=== PATIENT | male | born 1950 | race Caucasian/White ===

== ENCOUNTER 2020-07-13 20:57 | Inpatient (IN) ==
--- NOTE | 2020-07-13 21:44 | Emergency Department Note ---
History of Present Illness General Chief complaint: Leg Injury/Pain Stated complaint: RIGHT LEG IS PURPLE - HAD HEART CATH THE OTHER DAY Time Seen by Provider: 07/13/20 21:27 Source: patient History of Present Illness Provider complaint: Right thigh pain Onset (ago): day(s) Location: lower extremity and right Radiation: non-radiation Severity: moderate Pain Consistency: + constant Maximum Pain Intensity: 6 Relieved By: + none Associated symptoms: no chest pain, no cough, no fever/chills, no headaches, no nausea/vomiting, no shortness of breath and no syncope This is a 70-year-old male who had a cardiac catheterization in the right groin on July 09 presenting with right thigh pain since yesterday. The patient states that there was some bruising in the area and now it has expanded down his thigh. He does not have pain to the groin but states the pain is mostly in his mid inner thigh. He does state he bruises easily. He has bruises to his right toes but states that that was because he caught it in a towel. He chronically has lower extremity edema which is unchanged. Today he tripped on something and fell onto his right side hitting his leg shoulder and forehead. He did not black out. He has known neck injury. He denies any other injury from his fall. His shoulder is not bothering him. He has had no fever, cough or cold sym ptoms, chest discomfort or pain, shortness of breath, abdominal pain, vomiting or diarrhea or hematuria. He is on aspirin and no other blood thinners. He denies any right shoulder pain. Home Medications Home Medications Medication Instructions Recorded Confirmed Type metoprolol succinate 12.5 mg PO DAILY 07/13/20 07/14/20 History aspirin 81 mg PO DAILY 07/14/20 07/14/20 History omega-3 fatty acids [Fish Oil] 1,000 mg PO DAILY 07/14/20 07/14/20 History Allergies Allergy/AdvReac Type Severity Reaction Status Date / Time Sulfa (Sulfonamide Allergy Swelling Verified 07/14/20 00:10 Antibiotics) of Lip/Tongue/Throat Past Med/Surg History Medical History Coronary artery disease Social History Smoking Status: Never smoker Second Hand Exposure: Yes; Hx Alcohol Use: Yes Alcohol type: wine Hx Substance Use: No Preferred Language: French Communication Ability: Effective Beliefs That Will Affect Care: None Current Living Situation: Significant Other Feels Safe at Home: Yes Assistive Devices: Denture - Upper, Denture - Lower and Glasses Review of Systems See HPI for pertinent positives & negatives. and A total of 10 systems reviewed and were otherwise negative Physical Exam Vital Signs Vital Signs - 24 hr 07/13/20 21:02 07/13/20 22:38 07/14/20 00:13 Temperature 36.8 C Temperature Source Oral Pulse Rate 84 Pulse Rate [Finger] 67 64 Respiratory Rate 20 18 18 Respiratory Depth Normal Blood Pressure 175/93 H Blood Pressure [Right Arm] 164/82 H 160/89 H Blood Pressure Mean 120 Blood Pressure Mean [Right Arm] 109 112 Pulse Oximetry 95 99 98 Oxygen Delivery Method Room Air Room Air Room Air Sepsis Recent Fever Within 48 Hours No Sepsis New/Unexplained Change in Mental Status N/A Sepsis Action Taken by Nursing No Action Required Constitutional: Vital signs reviewed. Eyes: Pupils are equal round reactive to light. Conjunctiva are noninjected. ENT: Pharynx is clear without erythema or exudate. Mucous membranes are moist. Neck supple without meningeal signs. Respiratory: Clear to auscultation bilaterally. Breath sounds are equal bilaterally. Cardiovascular: Regular rate and rhythm. No rubs or gallops. GI: Soft, nondistended and nontender. Bowel sounds are present. Musculoskeletal: Bilateral pedal edema. DP and PT pulses are 2+ bilaterally. Both feet are warm. There is ecchymosis to the base of the 2nd-4th toes on the right foot without significant tenderness. He does have a palpable right femoral pulse without thrill. There is ecchymosis to the right inner thigh with tenderness at the mid medial thigh. No palpable cords. No tenderness to the right shoulder or arm. No tenderness to the right hip or femur. No shortening. Integumentary: No cyanosis. or jaundice. Abrasion to the right forehead. Neurological: The patient is awake and alert. No focal deficits. Psychiatric: Normal affect. Not anxious appearing. Medical Decision Making Differential Diagnosis DVT, superficial thrombophlebitis, hematoma, pseudoaneurysm, ICH, concussion Medical Records Attestation: I reviewed the patient's medical records. The patient had a cardiac catheterization on July 09 which showed CAD inv olving the Home Medications Current Medication List: was personally reviewed by me Laboratory Data Attestation: I reviewed the patient's lab results. Result diagrams: 07/13/20 22:00 07/13/20 22:00 Lab Results 07/13/20 07/13/20 07/13/20 Range/Units 22:00 22:00 22:00 WBC 7.70 (4.8-10.8) K/uL RBC 4.76 (4.7-6.1) M/uL Hgb 14.2 (14.0-18.0) g/dL Hct 43.1 (42-52) % MCV 90.5 (80-100) fL MCH 29.8 (25-34) pg MCHC 32.9 (32-36) g/dL RDW Std Deviation 43.6 (36.4-46.3) fL RDW Coeff of Bahman 13.2 (11.5-14.5) % Plt Count 239 (130-400) K/uL MPV 10.9 H (7.4-10.4) fL Immature Gran % (Auto) 0.3 % Neut % (Auto) 55.7 % Lymph % (Auto) 27.0 % [place] % (Auto) 14.9 % Eos % (Auto) 1.7 % Baso % (Auto) 0.4 % Neut # (Auto) 4.29 (1.4-6.5) K/uL Lymph # (Auto) 2.08 (1.2-3.4) K/uL [place] # (Auto) 1.15 H (0.11-0.59) K/uL Eos # (Auto) 0.13 (0-0.5) K/uL Baso # (Auto) 0.03 (0-0.2) K/uL Immature Gran # (Auto) 0.02 (0.00-0.02) K/uL PT 10.9 (9.0-12.0) Seconds INR 1.0 (0.9-1.1) APTT 29.0 (21.0-31.0) Seconds PTT Ratio 1.0 Sodium 139 (136-145) mmol/L Potassium 3.8 (3.5-5.1) mmol/L Chloride 108 H (98-107) mmol/L Carbon Dioxide 25 (21-32) mmol/L Anion Gap 6.0 (3-11) BUN 22 H (7-18) mg/dl Creatinine 0.93 (0.6-1.4) mg/dl Est Cr Clr Drug Dosing 100.8 ml/min Est GFR ( Amer) 97.4 Est GFR (Non-Af Amer) 84.1 BUN/Creatinine Ratio 23.8 H (10-20) Glucose 111 H (70-99) mg/dl Calcium 8.9 (8.5-10.1) mg/dl Total Bilirubin 0.6 (0.2-1) mg/dl AST 19 (15-37) U/L ALT 24 (12-78) U/L Alkaline Phosphatase 74 (45-117) U/L Total Protein 7.5 (6.4-8.2) gm/dl Albumin 3.4 (3.4-5.0) gm/dl Globulin 4.1 H (2.5-4.0) gm/dl Albumin/Globulin Ratio 0.8 L (0.9-2) Imaging Data Radiologist's Impression: CT HEAD: Impression: No intracranial hemorrhage or other acute intracranial abnormality. No skull base or calvarium fracture. Postsurgical change of the right orbit. Complete opacification of the right until and ethmoid sinuses with air-fluid level in the right maxillary sinus, incompletely visualized. Recommend correl ation for symptoms. Global parenchymal volume loss with chronic microvascular ischemic changes. Radiologist: Roosevelt Peralta MD Study ready at 22:28 and initial results transmitted at 23:44 US ARTERIAL RIGHT LOWER EXTREMITY: There is a 1.8 cm pseudoaneurysm arising from the right RESOLUTE PROFESSIONAL. Right RESOLUTE PROFESSIONAL remains patent with triphasic waveform. Radiologist: Volodymyr Alvarado M.D. Study ready at 23:19 and initial results transmitted at 23:48 Head Trauma GCS Score: 15 MDM Narrative I did evaluate the patient as noted above. The patient is presenting with pain to the right leg as well as a head injury. IV access was established. I did order and review the patient's blood work as noted in the electronic medical record. His white count is not elevated. He is not anemic. He does not have thrombocytopenia. Electrolytes are unremarkable. I did order a CT of the head. I did review the images as well as the radiology report. He has no acute intracranial abnormality. I did order a venous and arterial Doppler of the right leg. I did review the images myself as well as the radiology report as described above. There is no DVT. He does have a 1.8 cm pseudoaneurysm off of the RESOLUTE PROFESSIONAL. I did discuss the test results with the patient. I did speak to Dr. Mejias who performed his cardiac catheterization. He recommended hospitalization for bed rest and further evaluation. I did discuss the case with the hospitalist and housing case manager. Impression & Plan Pseudoaneurysm of right femoral artery, Acute head injury, Fall Discharge Plan Visit Data Chief Complaint: Leg Injury/Pain Stated Complaint: RIGHT LEG IS PURPLE - HAD HEART CATH THE OTHER DAY ED Provider: Carlos Cee Discharge Problem: Pseudoaneurysm of right femoral artery, Acute head injury, Fall Patient Disposition: Being Evaluated by Hospitalist Forms Stand Alone Forms: My [facility] QRGL Prescriptions Prescriptions: No Action metoprolol succinate 25 mg tablet extended release 24 hr 12.5 mg PO DAILY RF: 0 aspirin 81 mg Tablet 81 mg PO DAILY RF: 0 Fish Oil Capsule 1,000 mg PO DAILY RF: 0 Referrals Referrals: Latonya Young, [Primary Care Provider] - Discharge Problem: Acute head injury Qualifiers: Encounter type: initial encounter Qualified Code(s): S09.90XA - Unspecified injury of head, initial encounter Fall Qualifiers: Encounter type: initial encounter Qualified Code(s): W19.XXXA - Unspecified fall, initial encounter
[2020-07-13 22:12] LABS: Basophils # (auto) 0.03 K/uL (0-0.2); Basophils % (auto) 0.4 %; Eosinophils # (auto) 0.13 K/uL (0-0.5); Eosinophils % (auto) 1.7 %; Hematocrit (blood only) 43.1 % (42-52); Hemoglobin 14.2 g/dL (14.0-18.0); Immature Granulocytes # (auto) 0.02 K/uL (0.00-0.02); Immature Granulocytes % (auto) 0.3 %; Lymphocytes # (auto) 2.08 K/uL (1.2-3.4); Mean Corpuscular Hemoglobin 29.8 pg (25-34); Mean Corpuscular Hgb Conc 32.9 g/dL (32-36); Mean Corpuscular Volume 90.5 fL (80-100); Mean Platelet Volume 10.9 fL (7.4-10.4); Monocytes # (auto) 1.15 K/uL (0.11-0.59); Monocytes % (auto) 14.9 %; Neutrophils # (auto) 4.29 K/uL (1.4-6.5); Neutrophils % (auto) 55.7 %; Platelet Count 239 K/uL (130-400); RDW Coefficient of Variation 13.2 % (11.5-14.5); RDW Standard Deviation 43.6 fL (36.4-46.3); Red Blood Count 4.76 M/uL (4.7-6.1)
[2020-07-13 22:21] LABS: Prothrombin Time 10.9 Seconds (9.0-12.0)
[2020-07-13 22:27] LABS: Albumin Level 3.4 gm/dl (3.4-5.0); BUN Creatinine Ratio 23.8 (10-20); Calcium 8.9 mg/dl (8.5-10.1); Creatinine Clr Calc Pharmacy 100.8 ml/min; Est GFR (African American) 97.4; Est GFR (Non-African American) 84.1; Potassium 3.8 mmol/L (3.5-5.1)
[2020-07-13 22:30] LABS: Albumin Globulin Ratio 0.8 (0.9-2); Bilirubin,Total 0.6 mg/dl (0.2-1); Globulin 4.1 gm/dl (2.5-4.0); Total Protein 7.5 gm/dl (6.4-8.2)
[2020-07-14] MEDS ORDERED: ACETAMINOPHEN 325 MG TAB PO PRN (02:50)
[2020-07-14] MEDS ORDERED: POLYETHYLENE (MIRALAX) 17 GM PACK PO PRN (02:50)
[2020-07-14] MEDS ORDERED: ONDANSETRON INJ 2 MG/ML 2 ML VIAL IV PRN (02:50)
[2020-07-14] MEDS ORDERED: NITROGLYCERIN SL 0.4 MG/TAB TAB SL PRN (02:50)
[2020-07-14] MEDS ORDERED: GLUCAGON FOR INJ 1 MG VIAL SQ PRN (03:00)
[2020-07-14] MEDS ORDERED: GLUCOSE 10 TABS/TUBE PO PRN (03:00)
[2020-07-14] MEDS ORDERED: DEXTROSE 50% 50 ML SYRINGE IV PRN (03:00)
[2020-07-14] MEDS ORDERED: GLUCOSE 40% GEL 15 GM TUBE PO PRN (03:00)
[2020-07-14] MEDS ORDERED: CARBOHYDRATES FOR HYPOGLYCEMIA PO PRN (03:00)
--- NOTE | 2020-07-14 03:10 | History and Physical Report ---
DATE OF ADMISSION: 07/14/2020 CHIEF COMPLAINT: Right groin purplish discoloration, found to have pseudoaneurysm. HISTORY OF PRESENT ILLNESS: This is a 70-year-old male with past medical history significant for type 2 diabetes, not on any medication, history of COPD, history of SVT, obesity, osteoarthritis, family history of ischemic heart disease, unspecified open-angle glaucoma, who presents with right groin pain. The patient had cardiac catheterization done on 07/09/2020, found to have nonobstructive disease. The patient states since cardiac catheterization he has some mild purple discoloration in his right groin.. It is growing in size and today he was walking outside his house when he tripped on the pipe and fell down. He hit his head but did not lose consciousness, but after that he noticed his purplish discoloration of right groin got worse. Has mild pain in the groin region. Duplex was done in the ER which is showing 1.8 cm pseudoaneurysm. ER physician discussed with cardiology and advised bed rest and observe in the hospital. Currently, the patient denies any other complaints. Resting comfortably and hemodynamically stable. Denies any headache, no blurred vision, no earache, no runny nose, no sore throat, no cough, no dysphagia, no nausea, no chest pain, no shortness of breath, no abdominal pain. Normal bowel and bladder movements. The patient otherwise ambulates okay. ALLERGIES: LASIX, SULFA ANTIBIOTICS, NAPROSYN. PAST MEDICAL HISTORY: As mentioned above. PAST SURGICAL HISTORY: Colonoscopy; left corneal allograft; keratoplasty, endothelial left side; removal of cataract on right side; intracapsular lens extraction on left side. MEDICATIONS: The patient is on aspirin 81 mg p.o. daily, metoprolol succinate 12.5 mg p.o. daily, omega fatty acid 2 tablets daily. FAMILY HISTORY: Significant for father has heart disease. SOCIAL HISTORY: No smoking, no alcohol, no drug use. REVIEW OF SYSTEMS: As per HPI. Rest of the review of systems negative. PHYSICAL EXAMINATION: GENERAL: The patient is obese, not in acute distress. VITAL SIGNS: Temperature 36.8, pulse 67, respiratory rate 18, blood pressure 158/86, oxygen 97% on room air. HEENT: Pupils equal, round, and reactive to light. NECK: Supple, no neck masses seen. CARDIOVASCULAR: S1, S2 heard, regular rate and rhythm, no murmur, no gallop. RESPIRATORY SYSTEM: Normal AP diameter. No accessory muscle use. No wheezing, no crackles. ABDOMEN: Soft, bowel sounds present, nontender. No distention. CENTRAL NERVOUS SYSTEM: Cranial nerves II-XII grossly intact, nonfocal. EXTREMITIES: Right groin purplish discoloration seen extending into the medial aspect of the mid thigh. LABORATORY DATA: WBC 7.7, hemoglobin 14.2, hematocrit 43.1, platelets 239. PT 10.9, INR 1, APTT 29. Sodium 139, potassium 3.8, chloride 108, bicarbonate 25, BUN 22, creatinine 0.9, serum glucose 111, calcium 8.9, total bilirubin 0.6, AST 19, ALT 24, alkaline phosphatase 74. IMAGING DATA: Venous Doppler study, preliminary report, no evidence of acute DVT. CT of the head, preliminary report, no acute intracranial hemorrhage or acute intracranial abnormality. Nuclear scan of lower extremity artery, preliminary report, there is a 1.8 cm pseudoaneurysm arising from the right ABRASIVE WORKER. Right ABRASIVE WORKER remains patent with triphasic waveform. ASSESSMENT AND PLAN: This is a 70-year-old male who recently had a heart catheterization, who comes with right groin pain and found to have pseudoaneurysm. 1. Pseudoaneurysm: Plan to give him bed rest and observe in the hospital. Cardiology consult in a.m. for any further recommendation. 2. History of nonobstructive coronary artery disease. Continue his Toprol-XL and aspirin. 3. History of supraventricular tachycardias. Continue his metoprolol succinate. 4. Diabetes, not on any medication. Will follow the hemoglobin A1c level. Place him on insulin sliding scale. Monitor the blood sugar in the hospital. 5. Deep venous thrombosis prophylaxis, sequential compression devices for now. 6. Disposition: Observe in med dMetrics. Expect to discharge home and follow with his family doctor. Level 1 full code. MTDD
[2020-07-14 07:29] LABS: Basophils # (auto) 0.02 K/uL (0-0.2); Basophils % (auto) 0.3 %; Eosinophils # (auto) 0.17 K/uL (0-0.5); Eosinophils % (auto) 2.8 %; Hematocrit (blood only) 39.4 % (42-52); Hemoglobin 13.3 g/dL (14.0-18.0); Immature Granulocytes # (auto) 0.02 K/uL (0.00-0.02); Immature Granulocytes % (auto) 0.3 %; Lymphocytes % (auto) 27.7 %; Mean Corpuscular Hemoglobin 30.4 pg (25-34); Mean Corpuscular Hgb Conc 33.8 g/dL (32-36); Mean Platelet Volume 10.6 fL (7.4-10.4); Monocytes # (auto) 0.84 K/uL (0.11-0.59); Monocytes % (auto) 13.7 %; Neutrophils # (auto) 3.39 K/uL (1.4-6.5); Neutrophils % (auto) 55.2 %; Platelet Count 209 K/uL (130-400); RDW Coefficient of Variation 13.1 % (11.5-14.5); Red Blood Count 4.38 M/uL (4.7-6.1); White Blood Count 6.14 K/uL (4.8-10.8)
--- NOTE | 2020-07-14 07:49 | CT Scan Report ---
HEAD CT NONCONTRAST CT DOSE: 537.48 mGy.cm HISTORY: fall eval for bleed TECHNIQUE: Multiaxial CT images of the head were performed without the use of intravenous contrast. A utomated exposure control was utilized for this study. A dose lowering technique was utilized adheri ng to the principles of ALARA. Comparison: None. Findings: Fluid levels within the right maxillary sinus with opacification of the right frontal sinus and right anterior ethmoid air cells. Small focal bony defect within the left frontal sinus is likel y due to old trauma. Postoperative changes within the right orbit are noted. The mastoid air cells ar e clear. The calvarium and skull base are intact. The ventricles and sulci are within normal limits. There is no mass, hematoma, midline shift, or acute infarct. Impression: No acute intracranial abnormality. Sinus disease as described above. ACT 112: Negative or not required by law. Electronically signed by: Anderw Madrid M.D. 07/14/2020 7:47 AM
[2020-07-14] MEDS: ASPIRIN 81 MG ECTAB PO SCH (07:51)
[2020-07-14] MEDS: METOPROLOL SUCC 25MG EXT REL TAB PO SCH (07:51)
[2020-07-14 08:06] LABS: BUN Creatinine Ratio 21.6 (10-20); Calcium 9.1 mg/dl (8.5-10.1); Creatinine Clr Calc Pharmacy 109.3 ml/min; Est GFR (African American) 103.8; Est GFR (Non-African American) 89.5; Magnesium 2.3 mg/dl (1.8-2.4); Potassium 3.7 mmol/L (3.5-5.1)
[2020-07-14] MEDS: INSULIN ASPART 100 UNITS/ML 3 ML PEN SC SCH ×4 (08:43→20:46)
--- NOTE | 2020-07-14 08:47 | Ultrasound Report ---
US venous doppler LE RT CLINICAL HISTORY: Right thigh pain COMPARISON STUDY: No previous studies for comparison. FINDINGS: Real-time and color flow Doppler imaging were performed. Flow was seen within the femoral, popliteal and calf veins with no intraluminal thrombus demonstrated. The saphenous vein is patent. IMPRESSION: No evidence of right lower extremity DVT. ACT 112: Negative or not required by law. Electronically signed by: Linus Yang M.D. 07/14/2020 8:46 AM
--- NOTE | 2020-07-14 08:59 | Ultrasound Report ---
US arterial duplex LE RT CLINICAL HISTORY: Right groin pain status post catheterization. COMPARISON STUDY: No previous studies for comparison. FINDINGS: A targeted ultrasound of the right groin region was performed. There is an 18 mm pseudoaneu rysm arising from the right common femoral artery. This demonstrated 2 and fro flow on color Doppler evaluation. The right common femoral artery was patent demonstrating triphasic flow. IMPRESSION: 18 mm pseudoaneurysm arising from the right common femoral artery. ACT 112: Negative or not required by law. Electronically signed by: Linus Yang M.D. 07/14/2020 8:58 AM
--- NOTE | 2020-07-14 09:09 | Cardiology Consultation ---
Date of Consultation July 14, 2020 Assessment & Plan (1) Pseudoaneurysm of right femoral artery: (2) Acute head injury: (3) Fall: (4) Coronary artery disease: This is a small pseudoaneurysm which is most likely to close on its own. I placed the pressure wrap on it. The patient has minimal discomfort and there is no bruit or pulsatile mass. Good distal pulses in the right lower extremity. We will place him at bedrest. Leave the pressure dressing on and repeat the ultrasound tomorrow. I did discuss the case with Dr. Paez and he will be seeing the patient as well. History of Present Illness Attending Physician: Nicholas Perales MD History of Present Illness This is a 70-year-old male patient who underwent a cardiac catheterization 6 days ago. He was doing well and had a little ecchymosis on the medial portion of his right thigh from the heart catheterization. Yesterday he was working around his yard and tripped over a piece of pipe and fell. He struck his head. He also thought there may be some expansion of the ecchymosis on his leg. He became concerned and was brought to the emergency department. In evaluation and CT of the brain was unremarkable for acute trauma. An ultrasound of the groin indicates a small 1.75 cm in diameter pseudoaneurysm. The patient was admitted and placed at bedrest. He has no other complaints today. He denies groin pain. No pain into the right thigh. He has been taken off of the aspirin and fish oil. He remains on metoprolol. Allergies Allergy/AdvReac Type Severity Reaction Status Date / Time Sulfa (Sulfonamide Allergy Swelling Verified 07/14/20 00:10 Antibiotics) of Lip/Tongue/Throat Home Medications Home Medications Medication Instructions Recorded Confirmed Type metoprolol succinate 12.5 mg PO DAILY 07/13/20 07/14/20 History aspirin 81 mg PO DAILY 07/14/20 07/14/20 History omega-3 fatty acids [Fish Oil] 1,000 mg PO DAILY 07/14/20 07/14/20 History Patient History Medical History Coronary artery disease Social History Smoking Status: Never smoker Second Hand Exposure: Yes; Hx Alcohol Use: Yes Alcohol type: wine Hx Substance Use: No Preferred Language: Romansh Communication Ability: Effective Permastone Mechanic Required: No Beliefs That Will Affect Care: None marital status: Life Partner Current Living Situation: Significant Other Feels Safe at Home: Yes Safety Concerns: Feels Safe At This Time Assistive Devices: None Review of Systems Review of Systems: All systems reviewed & are unremarkable except as noted in HPI & below Nothing additional to add. Physical Exam Physical Exam: General: no acute distress and stated age Head: normocephalic, no masses, lesions, tenderness or abnormalities Eyes: conjunctiva are pink and non-injected, sclera clear Neck: supple, no adenopathy, no bruits, normal jugular venous pulse, no hepatojugular reflux Chest: normal shape and normal respiratory effort Lungs: clear to auscultation and percussion Cardiac Exam: - regular rate & rhythm, no murmurs gallops or rubs - normal S1, normal S2 Pulses: 2(+) throughout Abdomen: abdomen soft, non-tender, no abnormal masses and no hepatosplenomegaly Musculoskeletal: no gait disturbance, no joint inflammation, no deforming arthritis Extremities: Ecchymosis along the medial portion of the right thigh. There is no mass or hematoma at the cath site. No bruits or pulsatile mass. The right lower extremity is warm to palpation with good distal pulses. Neuro: grossly normal exam Results & Data ([facility]) Vital Signs (Past 12 Hours) Vital Signs Temp Pulse Pulse Resp BP BP BP 07/14/20 07:21 36.8 C 66 16 135/75 07/14/20 07:12 66 07/14/20 03:14 63 07/14/20 02:50 07/14/20 02:25 36.5 C 67 16 176/86 H 07/14/20 02:09 69 18 156/87 H 07/14/20 01:28 67 18 158/86 H 07/14/20 00:13 64 18 160/89 H 07/13/20 22:38 67 18 164/82 H 07/13/20 21:02 36.8 C 84 20 175/93 H Pulse Ox Pulse Ox 07/14/20 07:21 94 07/14/20 07:12 07/14/20 03:14 07/14/20 02:50 96 07/14/20 02:25 96 07/14/20 02:09 96 07/14/20 01:28 97 07/14/20 00:13 98 07/13/20 22:38 99 07/13/20 21:02 95 Laboratory Results Laboratory Results - last 24 hr 07/13/20 07/13/20 07/13/20 22:00 22:00 22:00 WBC 7.70 RBC 4.76 Hgb 14.2 Hct 43.1 MCV 90.5 MCH 29.8 MCHC 32.9 RDW Std Deviation 43.6 RDW Coeff of Bahman 13.2 Plt Count 239 MPV 10.9 H Immature Gran % (Auto) 0.3 Neut % (Auto) 55.7 Lymph % (Auto) 27.0 [place] % (Auto) 14.9 Eos % (Auto) 1.7 Baso % (Auto) 0.4 Neut # (Auto) 4.29 Lymph # (Auto) 2.08 [place] # (Auto) 1.15 H Eos # (Auto) 0.13 Baso # (Auto) 0.03 Immature Gran # (Auto) 0.02 PT 10.9 INR 1.0 APTT 29.0 PTT Ratio 1.0 Sodium 139 Potassium 3.8 Chloride 108 H Carbon Dioxide 25 Anion Gap 6.0 BUN 22 H Creatinine 0.93 Est Cr Clr Drug Dosing 100.8 Est GFR ( Amer) 97.4 Est GFR (Non-Af Amer) 84.1 BUN/Creatinine Ratio 23.8 H Glucose 111 H POC Glucose Calcium 8.9 Magnesium Total Bilirubin 0.6 AST 19 ALT 24 Alkaline Phosphatase 74 Total Protein 7.5 Albumin 3.4 Globulin 4.1 H Albumin/Globulin Ratio 0.8 L 07/14/20 07/14/20 07/14/20 06:55 06:55 07:17 WBC 6.14 RBC 4.38 L Hgb 13.3 L Hct 39.4 L MCV 90.0 MCH 30.4 MCHC 33.8 RDW Std Deviation 43.0 RDW Coeff of Bahman 13.1 Plt Count 209 MPV 10.6 H Immature Gran % (Auto) 0.3 Neut % (Auto) 55.2 Lymph % (Auto) 27.7 [place] % (Auto) 13.7 Eos % (Auto) 2.8 Baso % (Auto) 0.3 Neut # (Auto) 3.39 Lymph # (Auto) 1.70 [place] # (Auto) 0.84 H Eos # (Auto) 0.17 Baso # (Auto) 0.02 Immature Gran # (Auto) 0.02 PT INR APTT PTT Ratio Sodium 140 Potassium 3.7 Chloride 108 H Carbon Dioxide 27 Anion Gap 5.0 BUN 18 Creatinine 0.85 Est Cr Clr Drug Dosing 109.3 Est GFR ( Amer) 103.8 Est GFR (Non-Af Amer) 89.5 BUN/Creatinine Ratio 21.6 H Glucose 108 H POC Glucose 112 H Calcium 9.1 Magnesium 2.3 Total Bilirubin AST ALT Alkaline Phosphatase Total Protein Albumin Globulin Albumin/Globulin Ratio Medications Administered Current Inpatient Medications Acetaminophen (Acetaminophen 325 Mg Tab) 650 mg PO Q4H PRN PRN Reason: Pain or Fever Stop: 08/13/20 02:49 Aspirin (Aspirin 81 Mg Ectab) 81 mg PO DAILY [facility] Stop: 08/13/20 08:59 Last Admin: 07/14/20 07:51 Dose: 81 mg Documented by: Dextrose (Dextrose 50% 50 Ml Syringe) 25 - 50 ml IV UD PRN; Protocol PRN Reason: Hypoglycemia Protocol Stop: 08/13/20 02:59 Glucagon (Glucagon For Inj 1 Mg Vial) 1 mg SQ UD PRN; Protocol PRN Reason: Hypoglycemia Protocol Stop: 08/13/20 02:59 Glucose (Glucose 40% Gel 15 Gm Tube) 15 - 30 gm PO UD PRN; Protocol PRN Reason: Hypoglycemia Protocol Stop: 08/13/20 02:59 Glucose (Glucose 10 Tabs/Tube) 4 - 8 tabs PO UD PRN; Protocol PRN Reason: Hypoglycemia Protocol Stop: 08/13/20 02:59 Insulin Aspart (Insulin Aspart 100 Units/Ml 3 Ml Pen) 0 units SC ACHS [place] Stop: 08/13/20 07:29 Last Admin: 07/14/20 08:43 Dose: Not Given Documented by: Metoprolol Succinate (Metoprolol Succ 25mg Ext Rel Tab) 12.5 mg PO DAILY [place] Stop: 08/13/20 08:59 Last Admin: 07/14/20 07:51 Dose: 12.5 mg Documented by: Miscellaneous (Carbohydrates For Hypoglycemia ) 15 - 30 gm PO UD PRN PRN Reason: Hypoglycemia Treatment Stop: 08/13/20 02:59 Nitroglycerin (Nitroglycerin Sl 0.4 Mg/Tab Tab) 0.4 mg SL UD PRN PRN Reason: Chest Pain Stop: 08/13/20 02:49 Ondansetron HCl (Ondansetron Inj 2 Mg/Ml 2 Ml Vial) 4 mg IV Q6H PRN PRN Reason: Nausea Stop: 08/13/20 02:49 Polyethylene Glycol (Polyethylene (Miralax) 17 Gm Pack) 17 gm PO DAILY PRN PRN Reason: Constipation Stop: 08/13/20 02:49 (1) Acute head injury Encounter type: initial encounter Qualified Code(s): S09.90XA - Unspecified injury of head, initial encounter (2) Fall Encounter type: initial encounter Qualified Code(s): W19.XXXA - Unspecified fall, initial encounter
--- NOTE | 2020-07-14 20:32 | Hospitalist Progress Note ---
Date of Service July 14, 2020 Assessment & Plan (1) Pseudoaneurysm of right femoral artery: Arterial duplex demonstrated 18 mm pseudoaneurysm arising from right common femoral artery. Vascular Surgery consulted. (2) Coronary artery disease: No anginal symptoms. (3) DVT prophylaxis: No anticoagulants due to RLE ecchymosis. SCD's. (4) Discharge planning issues: Anticipated discharge to home. Family Medicine follow-up with Dr. Young. Cardiology follow-up with Dr. Mejias. Admission and Anticipated Discharge Date Admission Date: July 14, 2020 Subjective Recheck for pseudoaneurysm right groin. Patient seen in their room around 1100. Admitted early this morning for monitoring of pseudoaneurysm right common femoral artery. S/P cardiac cath via right groin 07/10/20. Persistent ecchymosis right groin and thigh, but not too much pain. Physical Exam Constitutional: no acute distress Respiratory: no respiratory distress Auscultation: lungs clear to auscult ation bilaterally Cardiovascular: Rate/Rhythm: regular rate and regular rhythm Vessels: normal peripheral pulses (right DP 1/2, right PT 2/2); no JVD Extremities: no calf tenderness and no edema Gastrointestinal (Abdomen): normal bowel sounds, soft, nontender, no hepatosplenomegaly Musculoskeletal: Extremities: + extremities abnormal to inspection (pressure dressing right groin; ecchymoses right thigh) Skin: no rashes, warm and dry Psychiatric: Orientation: alert and oriented x 3 Results & Data Results & Data ([place]) Vital Signs (Past 12 Hours) Vital Signs Temp Pulse Pulse Resp BP Pulse Ox 07/14/20 19:14 36.9 C 70 16 155/75 H 98 07/14/20 16:28 66 07/14/20 15:38 36.8 C 65 16 134/55 L 92 07/14/20 11:22 36.5 C 54 L 16 161/93 H 96 07/14/20 11:18 36.9 C 94 H 16 99/69 L 94 Laboratory Results 07/14/20 06:55 07/14/20 06:55
[2020-07-14] MEDS: prednisoLONE acetate 1% OP SUSP 5 ML BTL OPB SCH (20:49)
[2020-07-14] MEDS: ARTIFICIAL TEARS OPB SCH (20:50)
[2020-07-15 07:35] LABS: Hematocrit (blood only) 41.5 % (42-52); Hemoglobin 13.9 g/dL (14.0-18.0)
[2020-07-15 07:59] LABS: BUN Creatinine Ratio 17.6 (10-20); Calcium 8.8 mg/dl (8.5-10.1); Creatinine Clr Calc Pharmacy 105.5 ml/min; Est GFR (African American) 102.3; Est GFR (Non-African American) 88.3
[2020-07-15] MEDS: METOPROLOL SUCC 25MG EXT REL TAB PO SCH (08:54)
[2020-07-15] MEDS: ASPIRIN 81 MG ECTAB PO SCH (08:56)
[2020-07-15] MEDS: INSULIN ASPART 100 UNITS/ML 3 ML PEN SC SCH ×4 (08:56→20:38)
--- NOTE | 2020-07-15 09:33 | Consultation ---
Date of Consultation July 15, 2020 Assessment & Plan (1) Pseudoaneurysm of right femoral artery: Pt's US was reviewed by Dr Paez. Pseudoaneurysm is relatively small and may resolve with pressure. If not, then surgical repair will likely be recommended. Will have pt undergo new US tomorrow morning and make further recommendations at that time. Discussed with pt, he is agreeable. Ok to ambulate to bathroom. History of Present Illness Reason for Consultation: R segundo pseudoaneurysm Attending Physician: Nicholas Perales MD History of Present Illness 70 yo m with hx of CAD, HTN, admitted with R groin pseudoaneurysm, seen in consultation today for same. Pt underwent cardiac catheterization last week and noted some mild bruising to R thigh area postop. States this increased in area over next few days, then became significantly worse after doing some work at home, so came to [facility]. pressure dressing was placed yesterday. Denies pain, edema, chest pain, SOB, abd pain, N/V, rest pain, claudication, other complaints. US demonstrated 1.7 cm pseudoaneruysm of R femoral art. Allergies Allergy/AdvReac Type Severity Reaction Status Date / Time Sulfa (Sulfonamide Allergy Swelling Verified 07/14/20 00:10 Antibiotics) of Lip/Tongue/Throat Home Medications Home Medications Medication Instructions Recorded Confirmed Type metoprolol succinate 12.5 mg PO DAILY 07/13/20 07/14/20 History aspirin 81 mg PO DAILY 07/14/20 07/14/20 History omega-3 fatty acids [Fish Oil] 1,000 mg PO DAILY 07/14/20 07/14/20 History Patient History Medical History Coronary artery disease Social History Smoking Status: Never smoker Second Hand Exposure: Yes; Hx Alcohol Use: Yes Alcohol type: wine Hx Substance Use: No Preferred Language: Slovak Communication Ability: Effective 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 Beliefs That Will Affect Care: None marital status: Life Partner Current Living Situation: Significant Other Feels Safe at Home: Yes Safety Concerns: Feels Safe At This Time Assistive Devices: None Review of Systems Review of Systems: All systems reviewed & are unremarkable except as noted in HPI & below Physical Exam Constitutional: WD/WN, vitals as above healthy appearing, cooperative, comfortable and + in distress (mild emotional) Eyes: PERRL, conjunctivae normal, anicteric sclerae ENMT: Ears: no hearing impairment Neck: normal visual inspection and trachea midline Respiratory: normal respiratory effort, lungs clear to auscultation Cardiovascular: RRR, no murmur, no edema Vessels: normal peripheral pulses, femoral pulses present (pressure dressing to R groin, pulse easily palpable), posterior tibial pulses present, dorsalis pedis pulses present, brachial pulses present and radial pulses present Extremities: normal capillary refill; no edema Gastrointestinal (Abdomen): normal bowel sounds, soft, nontender, no hepatosplenomegaly Musculoskeletal: no cyanosis or clubbing, extremities motor strength 5/5 Skin: no rashes, warm and dry + ecchymosis (soft R groin/thigh) Neurologic: moves all extremities; no focal motor deficits and not confused Psychiatric: A+Ox3, euthymic affect Affect: + anxious affect Results & Data ([facility]) Vital Signs (Past 12 Hours) Vital Signs Temp Pulse Pulse Resp BP Pulse Ox 07/15/20 07:15 36.8 C 72 18 147/77 H 96 07/15/20 07:00 68 07/15/20 03:24 36.9 C 76 18 137/76 94 07/14/20 22:20 67 07/14/20 22:05 36.8 C 74 18 130/72 98
--- NOTE | 2020-07-15 10:24 | Cardiology Progress Note ---
Date of Service July 15, 2020 Assessment & Plan (1) Pseudoaneurysm of right femoral artery: (2) Acute head injury: (3) Fall: (4) Coronary artery disease: Vascular surgery consult appreciated. It seems the plan will be to keep the patient at bedrest again today with a pressure wrap on and then complete a follow-up ultrasound tomorrow morning which if the pseudoaneurysm has closed and he can be discharged. Admission and Anticipated Discharge Date Admission Date: July 14, 2020 Subjective The patient has no new cardiac complaints. Unfortunately, his elderly mother has been diagnosed with COVID. He is trying to find out more information. Review of Systems Review of Systems: All systems reviewed & are unremarkable except as noted in Subjective Physical Exam Physical Exam: General: no acute distress and stated age Head: normocephalic, no masses, lesions, tenderness or abnormalities Eyes: conjunctiva are pink and non-injected, sclera clear Neck: supple, no adenopathy, no bruits, normal jugular venous pulse, no hepatojugular reflux Chest: normal shape and normal respiratory effort Lungs: clear to auscultation and percussion Cardiac Exam: - regular rate & rhythm, no murmurs gallops or rubs - normal S1, normal S2 Pulses: 2(+) throughout Abdomen: abdomen soft, non-tender, no abnormal masses and no hepatosplenomegaly Musculoskeletal: no gait disturbance, no joint inflammation, no deforming arthritis Extremities: no edema and no cyanosis Neuro: grossly normal exam Results & Data ([facility]) Vital Signs (Past 12 Hours) Vital Signs Temp Pulse Pulse Resp BP Pulse Ox 07/15/20 07:15 36.8 C 72 18 147/77 H 96 07/15/20 07:00 68 07/15/20 03:24 36.9 C 76 18 137/76 94 Laboratory Results Laboratory Results - last 24 hr 07/14/20 07/14/20 07/14/20 11:46 16:51 20:36 Hgb Hct Sodium Potassium Chloride Carbon Dioxide Anion Gap BUN Creatinine Est Cr Clr Drug Dosing Est GFR ( Amer) Est GFR (Non-Af Amer) BUN/Creatinine Ratio Glucose POC Glucose 101 H 99 138 H Calcium 07/15/20 07/15/20 07/15/20 07:17 07:17 07:26 Hgb 13.9 L Hct 41.5 L Sodium 137 Potassium 4.0 Chloride 106 Carbon Dioxide 27 Anion Gap 4.0 BUN 16 Creatinine 0.88 Est Cr Clr Drug Dosing 105.5 Est GFR ( Amer) 102.3 Est GFR (Non-Af Amer) 88.3 BUN/Creatinine Ratio 17.6 Glucose 117 H POC Glucose 140 H Calcium 8.8 Medications Administered Current Inpatient Medications Acetaminophen (Acetaminophen 325 Mg Tab) 650 mg PO Q4H PRN PRN Reason: Pain or Fever Stop: 08/13/20 02:49 Artificial Tears (Artificial Tears) 1 drops OPB DAILY@2100 [facility] Stop: 08/13/20 20:59 Last Admin: 07/14/20 20:50 Dose: 1 drops Documented by: Aspirin (Aspirin 81 Mg Ectab) 81 mg PO DAILY [facility] Stop: 08/13/20 08:59 Last Admin: 07/15/20 08:56 Dose: 81 mg Documented by: Dextrose (Dextrose 50% 50 Ml Syringe) 25 - 50 ml IV UD PRN; Protocol PRN Reason: Hypoglycemia Protocol Stop: 08/13/20 02:59 Glucagon (Glucagon For Inj 1 Mg Vial) 1 mg SQ UD PRN; Protocol PRN Reason: Hypoglycemia Protocol Stop: 08/13/20 02:59 Glucose (Glucose 40% Gel 15 Gm Tube) 15 - 30 gm PO UD PRN; Protocol PRN Reason: Hypoglycemia Protocol Stop: 08/13/20 02:59 Glucose (Glucose 10 Tabs/Tube) 4 - 8 tabs PO UD PRN; Protocol PRN Reason: Hypoglycemia Protocol Stop: 08/13/20 02:59 Insulin Aspart (Insulin Aspart 100 Units/Ml 3 Ml Pen) 0 units SC ACHS [facility] Stop: 08/13/20 07:29 Last Admin: 07/15/20 08:56 Dose: Not Given Documented by: Metoprolol Succinate (Metoprolol Succ 25mg Ext Rel Tab) 12.5 mg PO DAILY [facility] Stop: 08/13/20 08:59 Last Admin: 07/15/20 08:54 Dose: 12.5 mg Documented by: Miscellaneous (Carbohydrates For Hypoglycemia ) 15 - 30 gm PO UD PRN PRN Reason: Hypoglycemia Treatment Stop: 08/13/20 02:59 Nitroglycerin (Nitroglycerin Sl 0.4 Mg/Tab Tab) 0.4 mg SL UD PRN PRN Reason: Chest Pain Stop: 08/13/20 02:49 Ondansetron HCl (Ondansetron Inj 2 Mg/Ml 2 Ml Vial) 4 mg IV Q6H PRN PRN Reason: Nausea Stop: 08/13/20 02:49 Polyethylene Glycol (Polyethylene (Miralax) 17 Gm Pack) 17 gm PO DAILY PRN PRN Reason: Constipation Stop: 08/13/20 02:49 Prednisolone Acetate (Prednisolone Acetate 1% Op Susp 5 Ml Btl) 1 drops OPB DAILY@2100 [facility] Stop: 08/13/20 20:59 Last Admin: 07/14/20 20:49 Dose: 1 drops Documented by: (1) Acute head injury Encounter type: initial encounter Qualified Code(s): S09.90XA - Unspecified injury of head, initial encounter (2) Fall Encounter type: initial encounter Qualified Code(s): W19.XXXA - Unspecified fall, initial encounter
[2020-07-15] MEDS: prednisoLONE acetate 1% OP SUSP 5 ML BTL OPB SCH ×3 (20:27→20:30)
[2020-07-15] MEDS: ARTIFICIAL TEARS OPB SCH (20:42)
[2020-07-15] MEDS ORDERED: SYSTANE EYE DROPS OPB SCH (21:00)
--- NOTE | 2020-07-15 21:10 | Hospitalist Progress Note ---
Date of Service July 15, 2020 Assessment & Plan (1) Pseudoaneurysm of right femoral artery: Arterial duplex demonstrated 18 mm pseudoaneurysm arising from right common femoral artery. Vascular Surgery consulted. Follow-up US recommended for tomorrow. May need surgical repair- check preop COVID-19 screen. (2) Coronary artery disease: No anginal symptoms. (3) DVT prophylaxis: No anticoagulants due to RLE ecchymosis. SCD's. (4) Discharge planning issues: Anticipated discharge to home. Family Medicine follow-up with Dr. Young. Cardiology follow-up with Dr. Mejias. Admission and Anticipated Discharge Date Admission Date: July 15, 2020 Subjective Recheck for pseudoaneurysm right groin. Patient seen in their room around 1040. Persistent ecchymosis right thigh. Mild discomfort right groin. Patient shared that his mother is in a half-way and was diagnosed with COVID-19. He has not had direct contact with her for some time because of visitation restrictions. Review of Systems: Constitutional- no fever. Cardiac- no chest pain. Pulmonary- no cough or SOB. GI- no nausea, vomiting, diarrhea, melena, hematochezia. - no urinary symptoms. Otherwise, as noted above. Physical Exam Constitutional: no acute distress Respiratory: no respiratory distress Auscultation: lungs clear to auscultation bilaterally Cardiovascular: Rate/Rhythm: regular rate and regular rhythm Vessels: no JVD Extremities: no calf tenderness and no edema Gastrointestinal (Abdomen): normal bowel sounds, soft, nontender, no hepatosplenomegaly Musculoskeletal: Extremities: + extremities abnormal to inspection (pressure dressing right groin; ecchymoses right thigh) Skin: no rashes, warm and dry Psychiatric: Orientation: alert and oriented x 3 Results & Data Results & Data ([facility]) Vital Signs (Past 12 Hours) Vital Signs Temp Pulse Pulse Resp BP Pulse Ox 07/15/20 19:41 37.1 C 88 18 144/77 H 92 07/15/20 15:59 37.0 C 70 20 152/68 H 96 07/15/20 14:20 72 07/15/20 11:18 37.2 C 76 18 161/83 H 91 Laboratory Results 07/15/20 07:17 07/15/20 07:17
[2020-07-16] MEDS: METOPROLOL SUCC 25MG EXT REL TAB PO SCH (08:23)
[2020-07-16] MEDS: ASPIRIN 81 MG ECTAB PO SCH (08:23)
[2020-07-16] MEDS: INSULIN ASPART 100 UNITS/ML 3 ML PEN SC SCH ×2 (08:24→12:14)
--- NOTE | 2020-07-16 09:10 | Ultrasound Report ---
US arterial duplex LE RT HISTORY: 70 years-old Male R groin pseudo. 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 FINDINGS: Triphasic waveforms are noted within the common femoral, profunda femoris and superficial femoral art eries. The previously described small pseudoaneurysm arising from the common femoral artery is not id entified on today's study. On today's exam, there is a complex mixed echogenicity collection with ill -defined margins within the right inguinal tissues adjacent to the common femoral artery, 3.3 x 1.9 x 2.4 cm. Probable adjacent hematoma within the subcutaneous tissues measures up to 4.4 x 2.3 x 3.3 cm . IMPRESSION: 1. Previously described pseudoaneurysm arising from the common femoral artery is not identified on to day's study. 2. Probable hematoma adjacent to the right common femoral artery and adjacent subcutaneous tissues as above. ACT 112: Negative or not required by law. The above report was generated using voice recognition software. It may contain grammatical, syntax o r spelling errors. Electronically signed by: Cecil Ennis M.D. 07/16/2020 9:09 AM
--- NOTE | 2020-07-16 11:33 | Cardiology Progress Note ---
Date of Service July 16, 2020 Assessment & Plan (1) Pseudoaneurysm of right femoral artery: (2) Acute head injury: (3) Fall: (4) Coronary artery disease: The patient is ready for discharge with outpatient follow-up. His pseudoaneurysm as expected closed with conservative management. I instructed him to follow his previous instructions not to lift anything heavy, squat or climb stairs. He should limit his activities for the next week. I will arrange follow-up with our clinic. Admission and Anticipated Discharge Date Admission Date: July 15, 2020 Subjective The patient has no new cardiac complaints today. He states that his leg actually feels better. Review of Systems Review of Systems: All systems reviewed & are unremarkable except as noted in HPI & below Nothing additional to add. Physical Exam Physical Exam: General: no acute distress and stated age Head: normocephalic, no masses, lesions, tenderness or abnormalities Eyes: conjunctiva are pink and non-injected, sclera clear Neck: supple, no adenopathy, no bruits, normal jugular venous pulse, no hepatojugular reflux Chest: normal shape and normal respiratory effort Lungs: clear to auscultation and percussion Cardiac Exam: - regular rate & rhythm, no murmurs gallops or rubs - normal S1, normal S2 Pulses: 2(+) throughout Abdomen: abdomen soft, non-tender, no abnormal masses and no hepatosplenomegaly Musculoskeletal: no gait disturbance, no joint inflammation, no deforming arthritis Extremities: Ecchymosis of the right groin without hematoma or bruit. Neuro: grossly normal exam Results & Data ([facility]) Vital Signs (Past 12 Hours) Vital Signs Temp Pulse Pulse Resp BP BP Pulse Ox 07/16/20 07:26 36.6 C 77 18 141/82 H 94 07/16/20 07:00 55 L 07/16/20 04:00 36.5 C 65 18 144/78 H 95 Laboratory Results Laboratory Results - last 24 hr 07/15/20 07/15/20 07/15/20 13:30 13:30 16:48 POC Glucose 132 H COVID-19 Eval Order Covid19 [facility]Now [facility] SARS-CoV-2, RNA, NAAT NEGATIVE 07/15/20 07/16/20 20:23 07:47 POC Glucose 117 H 139 H COVID-19 Eval Order SARS-CoV-2, RNA, NAAT Diagnostic Findings Repeat ultrasound of the right reveals the pseudoaneurysm to have closed. There is now just a small hematoma in the area of the heart catheterization. Medications Administered Current Inpatient Medications Acetaminophen (Acetaminophen 325 Mg Tab) 650 mg PO Q4H PRN PRN Reason: Pain or Fever Stop: 08/13/20 02:49 Artificial Tears (Artificial Tears) 1 drops OPB DAILY@2100 [facility] Stop: 08/13/20 20:59 Last Admin: 07/15/20 20:42 Dose: 1 drops Documented by: Aspirin (Aspirin 81 Mg Ectab) 81 mg PO DAILY [facility] Stop: 08/13/20 08:59 Last Admin: 07/16/20 08:23 Dose: 81 mg Documented by: Dextrose (Dextrose 50% 50 Ml Syringe) 25 - 50 ml IV UD PRN; Protocol PRN Reason: Hypoglycemia Protocol Stop: 08/13/20 02:59 Glucagon (Glucagon For Inj 1 Mg Vial) 1 mg SQ UD PRN; Protocol PRN Reason: Hypoglycemia Protocol Stop: 08/13/20 02:59 Glucose (Glucose 40% Gel 15 Gm Tube) 15 - 30 gm PO UD PRN; Protocol PRN Reason: Hypoglycemia Protocol Stop: 08/13/20 02:59 Glucose (Glucose 10 Tabs/Tube) 4 - 8 tabs PO UD PRN; Protocol PRN Reason: Hypoglycemia Protocol Stop: 08/13/20 02:59 Insulin Aspart (Insulin Aspart 100 Units/Ml 3 Ml Pen) 0 units SC ACHS [facility] Stop: 08/13/20 07:29 Last Admin: 07/16/20 08:24 Dose: Not Given Documented by: Metoprolol Succinate (Metoprolol Succ 25mg Ext Rel Tab) 12.5 mg PO DAILY [facility] Stop: 08/13/20 08:59 Last Admin: 07/16/20 08:23 Dose: 12.5 mg Documented by: Miscellaneous (Carbohydrates For Hypoglycemia ) 15 - 30 gm PO UD PRN PRN Reason: Hypoglycemia Treatment Stop: 08/13/20 02:59 Nitroglycerin (Nitroglycerin Sl 0.4 Mg/Tab Tab) 0.4 mg SL UD PRN PRN Reason: Chest Pain Stop: 08/13/20 02:49 Ondansetron HCl (Ondansetron Inj 2 Mg/Ml 2 Ml Vial) 4 mg IV Q6H PRN PRN Reason: Nausea Stop: 08/13/20 02:49 Polyethylene Glycol (Polyethylene (Miralax) 17 Gm Pack) 17 gm PO DAILY PRN PRN Reason: Constipation Stop: 08/13/20 02:49 Prednisolone Acetate (Prednisolone Acetate 1% Op Susp 5 Ml Btl) 1 drops OPB DAILY@2100 [facility] Stop: 08/13/20 20:59 Last Admin: 07/15/20 20:30 Dose: 1 drops Documented by: (1) Acute head injury Encounter type: initial encounter Qualified Code(s): S09.90XA - Unspecified injury of head, initial encounter (2) Fall Encounter type: initial encounter Qualified Code(s): W19.XXXA - Unspecified fall, initial encounter
--- NOTE | 2020-07-16 13:16 | Communication Note ---
Date of Service: July 16, 2020 No pseudoaneurysm seen on today's study Can d/c. Will repeat scan in two weeks.
--- NOTE | 2020-07-16 14:56 | Hospitalist Progress Note ---
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 Repeat Doppler Study: Previously described pseudoaneurysm arising from the common femoral artery is not identified on today's study. Probable hematoma adjacent to the right common femoral artery and adjacent subcutaneous tissues as above. Appreciate Vascular Surgery Input Will need repeat Dopplers in 2 weeks Needs follow-up with vascular surgeon upon discharge (2) Coronary artery disease: No anginal symptoms. Appreciate cardiology input (3) DVT prophylaxis: No anticoagulants Re: RLE ecchymosis. SCD's. CODE STATUS full code Disposition Plan to discharge home today (4) Discharge planning issues: Anticipated discharge to home. Family Medicine follow-up with Dr. Young. Cardiology follow-up with Dr. Mejias. Admission and Anticipated Discharge Date Admission Date: July 15, 2020 Subjective Patient is seen and examined at bedside Offers no new complaints Denies chest pain, shortness of breath, dizziness, nausea, abdominal pain, groin pain Doppler study done today showed no pseudoaneurysm Discussed with vascular surgery, cardiology today Plan to be discharged home today Review of Systems Review of Systems: All systems reviewed & are unremarkable except as noted in HPI & below Physical Exam Physical Exam: Physical Exam: Vitals signs as noted above General Appearance:Moderately built and nourished, no apparent distress Head: normocephalic, Atraumatic Eyes: normal inspection, EOMI Neck: supple, Trachea midline Respiratory/Chest: Normal breath sounds, CTA Cardiovascular: S1, S2, No murmur Abdomen/GI:Soft, Non tender, Bowel sounds present : R groin ecchymoses Extremities/Musculoskeletal:normal inspection, no edema Neurologic/Psych:AAOX3, grossly no focal neurological deficits Skin: normal color, warm Results & Data Results & Data ([facility]) Vital Signs (Past 12 Hours) Vital Signs Temp Pulse Pulse Resp BP BP Pulse Ox 07/16/20 14:20 71 07/16/20 11:33 72 18 158/80 H 97 07/16/20 07:26 36.6 C 77 18 141/82 H 94 07/16/20 07:00 55 L 07/16/20 04:00 36.5 C 65 18 144/78 H 95
--- NOTE | 2020-07-16 15:09 | Discharge Summary ---
Date of Service July 16, 2020 Admission HPI Per Admitting Provider CHIEF COMPLAINT: Right groin purplish discoloration, found to have pseudoaneurysm. HISTORY OF PRESENT ILLNESS: This is a 70-year-old male with past medical history significant for type 2 diabetes, not on any medication, history of COPD, history of SVT, obesity, osteoarthritis, family history of ischemic heart disease, unspecified open-angle glaucoma, who presents with right groin pain. The patient had cardiac catheterization done on 07/09/2020, found to have nonobstructive disease. The patient states since cardiac catheterization he has some mild purple discoloration in his right groin.. It is growing in size and today he was walking outside his house when he tripped on the pipe and fell down. He hit his head but did not lose consciousness, but after that he noticed his purplish discoloration of right groin got worse. Has mild pain in the groin region. Duplex was done in the ER which is showing 1.8 cm pseudoaneurysm. ER physician discussed with cardiology and advised bed rest and observe in the hospital. Currently, the patient denies any other complaints. Resting comfortably and hemodynamically stable. Denies any headache, no blurred vision, no earache, no runny nose, no sore throat, no cough, no dysphagia, no nausea, no chest pain, no shortness of breath, no abdominal pain. Normal bowel and bladder movements. The patient otherwise ambulates okay. Admission Exam Per Admitting Provider PHYSICAL EXAMINATION: GENERAL: The patient is obese, not in acute distress. VITAL SIGNS: Temperature 36.8, pulse 67, respiratory rate 18, blood pressure 158/86, oxygen 97% on room air. HEENT: Pupils equal, round, and reactive to light. NECK: Supple, no neck masses seen. CARDIOVASCULAR: S1, S2 heard, regular rate and rhythm, no murmur, no gallop. RESPIRATORY SYSTEM: Normal AP diameter. No accessory muscle use. No wheezing, no crackles. ABDOMEN: Soft, bowel sounds present, nontender. No distention. CENTRAL NERVOUS SYSTEM: Cranial nerves II-XII grossly intact, nonfocal. EXTREMITIES: Right groin purplish discoloration seen extending into the medial aspect of the mid thigh. Principal Diagnosis Right common femoral artery pseudoaneurysm Discharge Data Allergies Allergy/AdvReac Type Severity Reaction Status Date / Time Sulfa (Sulfonamide Allergy Swelling Verified 07/14/20 00:10 Antibiotics) of Lip/Tongue/Throat Consultations 07/13/20 23:51 ED Decision to Admit Stat 07/14/20 02:50 Consult Case Management - Discharge Planning Routine 07/14/20 08:00 Consult Cardiology Routine 07/14/20 09:42 Consult Vascular Surgery Routine Procedures Performed RLE Doppler:18 mm pseudoaneurysm arising from the right common femoral artery. HEAD CT:No acute intracranial abnormality. Sinus disease as described above. Venous Doppler: No evidence of right lower extremity DVT. Repeat Arterial Right LE doppler: 1. Previously described pseudoaneurysm arising from the common femoral artery is not identified on today's study. 2. Probable hematoma adjacent to the right common femoral artery and adjacent subcutaneous tissues as above. 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 Repeat Doppler Study: Previously described pseudoaneurysm arising from the common femoral artery is not identified on today's study. Probable hematoma adjacent to the right common femoral artery and adjacent subcutaneous tissues as above. Appreciate Vascular Surgery Input Will need repeat Dopplers in 2 weeks Needs follow-up with vascular surgeon upon discharge (2) Coronary artery disease: No anginal symptoms. Appreciate cardiology input (3) DVT prophylaxis: No anticoagulants Re: RLE ecchymosis. SCD's. CODE STATUS full code Disposition Plan to discharge home today (4) Discharge planning issues: Anticipated discharge to home. Family Medicine follow-up with Dr. Young. Cardiology follow-up with Dr. Mejias. Total Time Total Time Spent Total Time Spent (In Minutes): 38 minutes Total Time Includes: Examination of the Patient, Discharge Planning, Medication Reconciliation, Communication With Other Providers and Other Discharge Plan Discharge Items Patient Disposition: Home - Self-Care Reason For Visit: RIGHT LEG IS PURPLE - HAD HEART CATH THE OTHER DAY Discharge Diagnosis: Right common femoral artery pseudoaneurysm Activity: Per Instructions section Exercise/Sports: Gradually increase as tolerated Non-emergency contact: Primary Care Provider, Surgeon and Clinical Assessment Manager Call non-emergency contact if: you have any medication questions, your symptoms worsen, your pain is not controlled, your pain is worsening, your pain is unusual for you, you have a fever, your wound has increased redness, your wound has increased drainage and your wound pain has increased Follow-up/Referrals: Jignesh Paez MD [Physician] - (Call office to schedule a two week follow up with groin ultrasound) Chrissy Keller PA-C [Physician Rn Care Manager] - (Date & Time 08/06/2020 12:00 PM Provider Chrissy Keller PA-C [facility] ) Latonya Young DO [Primary Care Provider] - (Date & Time 07/22/2020 10:40 AM Provider Latonya Young DO Department [facility] ) Diet: Heart Healthy Addtl Attending Provider Instructions: Follow-up with your primary care physician Dr.Allison Young on 07/22/2020 10:40 AM as scheduled Follow up with your vascular surgeon Dr. Jignesh Paez in 2 weeks with repeat Doppler study as advised Follow-up with your manager hydraulic Chrissy Keller PA-C on 08/06/2020 12:00 PM as scheduled Seek immediate medical attention if your symptoms reoccur or worsen Pending Studies at Discharge: No Stand-Alone Forms: My [facility] [employer], Smoking Cessation Medications and DC Order Prescriptions: Continued metoprolol succinate 25 mg tablet extended release 24 hr 12.5 mg PO DAILY RF: 0 aspirin 81 mg Tablet 81 mg PO DAILY RF: 0 Fish Oil Capsule 1,000 mg PO DAILY RF: 0 Discharge Orders: Discharge Order (Routine); Ordered 07/16/20 Ordered By: Javan Marina Admission Data Admit Date/Time: 07/15/20 11:52 Attending Provider: Javan Marina Admit Provider: Rodney Van Primary Care Provider: Latonya Young Other Providers: Rodney Van ; Kirill Mejias ; Jignesh Paez
== END 2020-07-16 15:30 | disposition home or self-care (01) | DRG 301 ==
LOC: ED 20:57 → 2N 20:57 → SUATTDRO 07-14 01:46 → 2N 07-14 02:14 → SUATTDRO 07-15 11:52

== ENCOUNTER 2020-09-14 00:24 | Inpatient (IN) ==
[2020-09-14] MEDS ORDERED: ASPIRIN CHEW 324 MG PO STA (00:38)
[2020-09-14] MEDS ORDERED: NITROGLYCERIN SL 0.4 MG/TAB TAB SL PRN ×2 (00:38→04:38)
[2020-09-14 00:48] LABS: Basophils # (auto) 0.03 K/uL (0-0.2); Basophils % (auto) 0.4 %; Eosinophils # (auto) 0.12 K/uL (0-0.5); Eosinophils % (auto) 1.7 %; Hematocrit (blood only) 43.8 % (42-52); Hemoglobin 14.9 g/dL (14.0-18.0); Immature Granulocytes # (auto) 0.01 K/uL (0.00-0.02); Immature Granulocytes % (auto) 0.1 %; Lymphocytes # (auto) 2.18 K/uL (1.2-3.4); Mean Corpuscular Hemoglobin 30.9 pg (25-34); Mean Corpuscular Volume 90.9 fL (80-100); Mean Platelet Volume 11.1 fL (7.4-10.4); Monocytes # (auto) 1.01 K/uL (0.11-0.59); Monocytes % (auto) 14.4 %; Neutrophils # (auto) 3.68 K/uL (1.4-6.5); Neutrophils % (auto) 52.4 %; Platelet Count 210 K/uL (130-400); RDW Coefficient of Variation 13.4 % (11.5-14.5); RDW Standard Deviation 44.2 fL (36.4-46.3); Red Blood Count 4.82 M/uL (4.7-6.1); White Blood Count 7.03 K/uL (4.8-10.8)
--- NOTE | 2020-09-14 00:49 | Emergency Department Note ---
Impression & Plan Unstable angina pectoris, Chest pain, Abnormal EKG, Elevated troponin I level ED Provider Note NAME: LUI GARCIA AGE: 70 SEX: M : 1950 ARRIVES VIA: Walk-In INFORMANT: Patient, ED PROVIDER(S): Hemant Bhandari DO CHIEF COMPLAINT: Chest pain HPI: The patient is a 70-year-old male who presented to the emergency department for an evaluation of chest pain. The patient started having chest discomfort over the last few weeks. He started noticing left-sided chest pressure. He was seen by his manager banking for this pain. He had a cardiac catheterization in the end of June. At that time he was found to have coronary artery disease however there was no culprit lesion. I did review the patient's previous cardiac catheterization which was done in our facility. The patient was placed on medication for blood pressure as well as high cholesterol. The patient started having more discomfort over the last few days. He has noticed pain over the left side of the chest. The pain is worsened with exertion. The pain is sometimes relieved with rest as well as aspirin. The patient started having pain again this evening at approximately 7-8 PM. He was doing light activity when he noticed the onset of the pain. He did sit down and rest. He also took aspirin. His pain is significantly improved at this time but he still has continued discomfort so he came to the emergency department for further evaluation. He denies having any shortness of breath. He has had no lower extremity swelling or pain. He states otherwise he has been compliant with his outpatient medication regimen. He denies having any fever or cough. ROS: See above HPI for pertinent positives & negatives. A total of 10 systems reviewed and were otherwise negative. PAST MEDICAL HISTORY: See Below PAST SURGICAL HISTORY: See Below FAMILY HISTORY: See Below SOCIAL HISTORY: See Below HOME MEDICATIONS: See Below ALLERGIES: See Below VITALS: See Below PHYSICAL EXAMINATION: GENERAL: The patient is awake and alert. He seems somewhat uncomfortable. EYES: The conjunctivae are clear. The pupils are round and reactive. EARS, NOSE, MOUTH AND THROAT: The nose is without any evidence of any deformity. NECK: The neck is nontender and supple. RESPIRATORY: Normal respiratory effort is noted there is no evidence of wheezing rhonchi or rales CARDIOVASCULAR: Regular rate and rhythm noted there no murmurs rubs or gallops normal S1 normal S2. GASTROINTESTINAL: The abdomen is soft. Abdomen is nontender. MUSCULOSKELETAL/EXTREMITIES: There is no evidence of gross deformity full range of motion is noted in the hips and shoulders. SKIN: There is no obvious evidence of any rash. There are no petechiae, pallor or cyanosis noted. Pulses are symmetric in both wrists. NEUROLOGIC: Patient is awake alert and oriented x3. MEDICAL DECISION MAKING: The patient is a 70-year-old male who presented to the emergency department for an evaluation of chest discomfort. The patient had a recent cardiac catheterization which did show diffuse coronary artery disease especially in the LAD but this was felt to be medical management and did not appear to be a culprit lesion at that time. The patient has been having exertional chest pain especially over the last few days. He presented to the emergency department this evening with chest pain and abnormal EKG which included biphasic T waves in the anterior leads and inferior ST depressions. I do feel this could be consistent with coronary artery syndrome. The patient had aspirin and nitroglycerin in the emergency department which significantly improved his pain level. A repeat EKG was obtained and it showed significant improvement of the previously noted ST and T wave abnormalities. I discussed the patient's laboratory and radiographic studies with him. I also discussed the limitations of the emergency department work-up for chest pain with him. At this time I feel the patient would benefit from inpatient management and possibly repeat troponins and then evaluation by cardiology to determine if invasive testing would be beneficial again for this patient. Of note the patient did develop a pseudoaneurysm after the previous cardiac catheterization. Triage Nursing notes reviewed. Prior medical records reviewed Vital Signs: reviewed and remarkable for no significant abnormalities Differential diagnosis: Cardiac ischemia, aortic dissection, pulmonary embolism, pneumothorax, pneumonia, pericarditis, myocarditis, esophageal rupture, GERD, cholecystitis, pancreatitis, musculoskeletal, as well as other pathologies. ER treatment provided: See below Diagnostics interpreted by me: ECG: EKG was obtained in the emergency department. My interpretation is normal sinus rhythm at 70 bpm. There is no ectopy. Biphasic T waves were noted in the anterior leads. There was ST segment depressions noted in both the high and low lateral leads. This was compared to a tracing from May 092019. The ST and T wave abnormalities are new compared to the earlier tracing. I feel this represents an ischemic tracing. Repeat tracing was obtained after the patient was treated with aspirin and ni troglycerin. His pain was significantly improved. The second tracing reveals normal sinus rhythm at 75 bpm. There is no ectopy. Significant improvement of the previously noted ST and T wave abnormalities was appreciated. Cardiac Monitoring: An order was placed for continuous cardiac monitoring. The monitor shows a rate of 85 bpm with sinus rhythm. Laboratory studies: As stated above and show below. Imaging studies: See below Consultation(s): 0135: I discussed this case with Dr. Merino. We discussed the addition of heparin but at this time I will defer the decision to the admitting team as the patient continues to be pain-free. ED COURSE: Procedures: none PDMP:reviewed and no issues The patient's cardiac catheterization was reviewed. Patient: LUI GARCIA Date: 07/09/20MR#: [id number] Phy: Kirill Mejias, DOAcct ID:[id number] Phy: Latonya Young, DOBirth Date: 1950Fam Phy:Age: 70Location: CCSex: M Room/Bed:Ref Phy: Roge Reddy, DOcc: ~ DICTATED BY: Kirill Mejias, Date of Service July 09, 2020 Cardiac Cath Report Cardiac Cath Report Procedure: 1. Left heart catheterization 2. Coronary angiography 3. Left ventriculography History: This is a 70-year-old male patient who presented with exertional shortness of breath and underwent an exercise stress test that was abnormal. Procedure summary: After informed consent was obtained the patient was taken to the cardiac catheterization lab where access was obtained using a retrograde Salinger technique from the right radial artery. After several attempts however, a wire could not be passed for sheath placement and therefore the radial site was abandoned. I therefore obtained access using a retrograde Salinger technique from the right femoral artery. Preformed 5 Slovenian diagnostic catheters were utilized for the coronary angiograms. A 5 Slovenian pigtail catheter was utilized for left heart pressures and for the left ventriculogram. Following the procedure the arterial site was closed with a minx device and the patient was sent to the holding area the Acid Adjuster in stable condition. ACC data: Start time 8:33 AM End time 9:08 AM Opening aortic pressure 164/86 Closing aortic pressure 178/88 Left ventricular pressure 182/2 Sedation 1 mg intravenous Versed IV fluids 70 cc of normal saline Contrast 145 cc Optiray Fluoroscopy time 3.5 minutes Radiation 1515 mGy DAP 148 cGy/m Right dominant system AUC score 7 Coronary angiography: Selective injections of the left coronary artery revealed the left main trunk to be widely patent there is diffuse disease of the left coronary artery. A 40 to 50% proximal LAD stenosis with the remainder of the LAD being diffusely nonobstructive disease until the very apex of the LAD which has a subtotal stenosis there is a large diagonal which is diffusely diseased. The left circumflex artery consist of mainly a single marginal branch. The left circumflex artery has diffuse minor disease. Injections to the right coronary artery revealed to be dominant. There is an eccentric 50% stenoses in the mid segment of the right coronary artery and on the AP view there is evidence of collaterals to the very distal portion of the LAD. Left ventriculogram: The left ventricle is of normal size with normal systolic function. The mitral valve is competent. The aortic root and ascending aorta have normal morphology and diameter. Summary: The patient has diffuse coronary artery disease especially of the LAD. There is a 40 to 50% proximal LAD stenoses and more distally at the very end of the LAD there is a subtotal stenosis. There is also a 50% eccentric stenosis in the mid right coronary artery. Left ventricular function is normal. Recommendations: The recommendations are for medical management of nonobstructive coronary artery disease. Signed By:<Electronically signed by Kirill Mejias DO>{f rep sign date/time1]Created/Dictated: 07/09/20940Transcribed: 07/09/20940Transcriptionist: DEBBIE Past Med/Surg History Medical History Coronary artery disease High cholesterol Hypertension Pseudoaneurysm of right femoral artery Surgical History History of cardiac catheterization Social History Smoking Status: Never smoker Second Hand Exposure: Yes; Hx Alcohol Use: Yes Alcohol type: wine Hx Substance Use: No Preferred Language: Occitan Communication Ability: Effective Stack Attendant Required: No Beliefs That Will Affect Care: None marital status: Life Partner Current Living Situation: Significant Other Feels Safe at Home: Yes Assistive Devices: None Allergies Allergies Allergy/AdvReac Type Severity Reaction Status Date / Time Sulfa (Sulfonamide Allergy Swelling Verified 09/14/20 00:55 Antibiotics) of Lip/Tongue/Throat naproxen [From Naprosyn] AdvReac Intermediate Gastrointestinal Verified 09/14/20 00:55 Upset Home Meds Home Medications Medication Instructions Recorded Confirmed metoprolol succinate 25 mg PO QAM 07/13/20 09/14/20 aspirin 81 mg PO QAM 09/14/20 09/14/20 coenzyme Q10 [CoQ-10] 100 mg PO QAM 09/14/20 09/14/20 omega-3 fatty acids-fish oil 1 cap PO QAM 09/14/20 09/14/20 rosuvastatin 20 mg PO QAM 09/14/20 09/14/20 Results & Data (ED) Vital Signs Vital Signs - 24 hr 09/14/20 00:28 09/14/20 00:40 09/14/20 00:50 Temperature 36.9 C Temperature Source Oral Pulse Rate 76 76 Respiratory Rate 22 24 Respiratory Effort / Characteristics Non-Labored Spontaneous Respiratory Depth Normal Blood Pressure 162/83 H 137/86 Blood Pressure Mean 109 115 Pulse Oximetry 96 Oxygen Delivery Method Room Air Room Air Sepsis New/Unexplained Change in Mental Status N/A Sepsis Action Taken by Nursing No Action Required 09/14/20 00:56 Temperature Temperature Source Pulse Rate 70 Respiratory Rate 14 Respiratory Effort / Characteristics Respiratory Depth Blood Pressure 127/81 Blood Pressure Mean 103 Pulse Oximetry Oxygen Delivery Method Sepsis New/Unexplained Change in Mental Status Sepsis Action Taken by [facility] Medications Current Medication List: was personally reviewed by me Laboratory Data Attestation: I reviewed the patient's lab results. Result diagrams: 09/14/20 00:36 09/14/20 00:36 Lab Results 09/14/20 09/14/20 09/14/20 Range/Units 00:36 00:36 00:36 WBC 7.03 (4.8-10.8) K/uL RBC 4.82 (4.7-6.1) M/uL Hgb 14.9 (14.0-18.0) g/dL Hct 43.8 (42-52) % MCV 90.9 (80-100) fL MCH 30.9 (25-34) pg MCHC 34.0 (32-36) g/dL RDW Std Deviation 44.2 (36.4-46.3) fL RDW Coeff of Bahman 13.4 (11.5-14.5) % Plt Count 210 (130-400) K/uL MPV 11.1 H (7.4-10.4) fL Immature Gran % (Auto) 0.1 % Neut % (Auto) 52.4 % Lymph % (Auto) 31.0 % [place] % (Auto) 14.4 % Eos % (Auto) 1.7 % Baso % (Auto) 0.4 % Neut # (Auto) 3.68 (1.4-6.5) K/uL Lymph # (Auto) 2.18 (1.2-3.4) K/uL [place] # (Auto) 1.01 H (0.11-0.59) K/uL Eos # (Auto) 0.12 (0-0.5) K/uL Baso # (Auto) 0.03 (0-0.2) K/uL Immature Gran # (Auto) 0.01 (0.00-0.02) K/uL PT 10.8 (9.0-12.0) Seconds INR 1.0 (0.9-1.1) APTT 29.0 (21.0-31.0) Seconds PTT Ratio 1.0 Sodium 141 (136-145) mmol/L Potassium 4.0 (3.5-5.1) mmol/L Chloride 108 H (98-107) mmol/L Carbon Dioxide 27 (21-32) mmol/L Anion Gap 6.0 (3-11) BUN 17 (7-18) mg/dl Creatinine 0.87 (0.6-1.4) mg/dl Est Cr Clr Drug Dosing 111.0 ml/min Est GFR ( Amer) 102.8 Est GFR (Non-Af Amer) 88.7 BUN/Creatinine Ratio 19.2 (10-20) Glucose 114 H (70-99) mg/dl Calcium 8.4 L (8.5-10.1) mg/dl Total Bilirubin 0.4 (0.2-1) mg/dl AST 22 (15-37) U/L ALT 27 (12-78) U/L Alkaline Phosphatase 68 (45-117) U/L Troponin I 0.844 H* (0-0.045) ng/ml Total Protein 7.5 (6.4-8.2) gm/dl Albumin 3.6 (3.4-5.0) gm/dl Globulin 3.9 (2.5-4.0) gm/dl Albumin/Globulin Ratio 0.9 (0.9-2) Lipase 101 (73-393) U/L Administered Medications Nitroglycerin (Nitroglycerin Sl 0.4 Mg/Tab Tab) 0.4 mg SL UD PRN PRN Reason: Chest Pain Stop: 10/14/20 00:37 Last Admin: 09/14/20 00:47 Dose: 0.4 mg Documented by: [id number] Discontinued Medications Aspirin (Aspirin Chew 324 Mg) 324 mg PO NOW STA Stop: 09/14/20 00:39 Last Admin: 09/14/20 00:46 Dose: 324 mg Documented by: [id number] Imaging Data Attestation: I personally reviewed and interpreted this imaging study as follows: My Impression: 1 view chest x-ray was obtained in the emergency department. My interpretation is small right pleural effusion. Poor inspiratory effort was noted. There is no definite infiltrate. Tortuous aorta was noted. No acute disease was noted. No free air was noted. Blood Pressure Blood Pressure Findings: Elevated blood pressure Blood Pressure Disposition: further management by hospitalist Discharge Plan Visit Data Chief Complaint: Chest Pain Stated Complaint: CHEST PAIN, DIZZY, SOB ED Provider: Hemant Bhandari Discharge Problem: Unstable angina pectoris, Chest pain, Abnormal EKG, Elevated troponin I level Patient Disposition: Being Evaluated by Hospitalist Condition: Good Forms Stand Alone Forms: My [facility] [employer] Prescriptions Prescriptions: No Action metoprolol succinate 25 mg tablet extended release 24 hr 25 mg PO QAM RF: 0 aspirin 81 mg Tablet,Delayed Release (Dr/Ec) 81 mg PO QAM RF: 0 coenzyme Q10 [CoQ-10] 100 mg Capsule 100 mg PO QAM RF: 0 rosuvastatin 20 mg Tablet 20 mg PO QAM RF: 0 omega-3 fatty acids-fish oil 300-1,000 mg Capsule 1 cap PO QAM RF: 0 Referrals Referrals: Latonya Young DO [Primary Care Provider] - Discharge Problem: Chest pain Qualifiers: Chest pain type: unspecified Qualified Code(s): R07.9 - Chest pain, unspecified
[2020-09-14 00:59] LABS: Prothrombin Time 10.8 Seconds (9.0-12.0)
[2020-09-14 01:05] LABS: Albumin Level 3.6 gm/dl (3.4-5.0); BUN Creatinine Ratio 19.2 (10-20); Calcium 8.4 mg/dl (8.5-10.1); Est GFR (African American) 102.8; Est GFR (Non-African American) 88.7
[2020-09-14 01:25] LABS: Albumin Globulin Ratio 0.9 (0.9-2); Bilirubin,Total 0.4 mg/dl (0.2-1); Globulin 3.9 gm/dl (2.5-4.0); Total Protein 7.5 gm/dl (6.4-8.2); Troponin I 0.844 ng/ml (0-0.045)
--- NOTE | 2020-09-14 02:53 | History & Physical Report ---
Date of Service September 14, 2020 Assessment & Plan (1) NSTEMI (non-ST elevated myocardial infarction): hx nonocclusive CAD hypertension, slight elevated hyperlipidemia, on statin Rx COPD as per records, lung status stable DM 2 diet-controlled, well-controlled as of recent outpatient hemoglobin A1c of 5.19 May 2020. PCU Aspirin, beta-eric, statin, IV Heparin; nitro as needed Follow troponin TTE, Cardiology consult RE NSTEMI N.p.o. until patient seen by cardiology. ISS BG goal [id number], update hemoglobin A1c DVT prophylaxis. IV Heparin Full code Text document was generated using [employer] voice recognition software. It may contain grammatical or spelling errors. Kindly contact undersigned for clarification of any documentation item in question. History of Present Illness Chief Complaint: Chest pain Primary Care Provider: Latonya Young, History obtained from patient, family, and records. Medical history significant for nonocclusive CAD, PSVT, hypertension, hyperlipidemia, COPD as per records, DM 2 diet-controlled. Patient underwent diagnostic cardiac catheterization last June 2020 after an abnormal outpatient stress test. Nonobstructive CAD noted. Last confinement July 2020 right common femoral artery pseudoaneurysm as a complication of diagnostic cardiac cath procedure. Pseudoaneurysm resolved without operative management. 4 days history of achy left-sided chest heaviness as if somebody was stepping on his chest, intermittent symptoms, worsened with exertion, relieved by rest. Usual activities at home. Patient compliant with home medications. Some stress with mother's illness. No unusual cough or shortness of breath symptoms. Discomfort relieved by nitroglycerin administration at the ER. 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 Allergies Allergy/AdvReac Type Severity Reaction Status Date / Time Sulfa (Sulfonamide Allergy Swelling Verified 09/14/20 00:55 Antibiotics) of Lip/Tongue/Throat naproxen [From Naprosyn] AdvReac Intermediate Gastrointestinal Verified 09/14/20 00:55 Upset Home Medications Medication Instructions Recorded Confirmed Type metoprolol succinate 25 mg PO QAM 07/13/20 09/14/20 History aspirin 81 mg PO QAM 09/14/20 09/14/20 History coenzyme Q10 [CoQ-10] 100 mg PO QAM 09/14/20 09/14/20 History omega-3 fatty acids-fish oil 1 cap PO QAM 09/14/20 09/14/20 History rosuvastatin 20 mg PO QAM 09/14/20 09/14/20 History Past Med/Surg History Medical History Coronary artery disease High cholesterol Hypertension Pseudoaneurysm of right femoral artery Surgical History History of cardiac catheterization Social History Smoking Status: Never smoker Second Hand Exposure: Yes; Hx Alcohol Use: No Hx Substance Use: No Preferred Language: Turkish Communication Ability: Effective 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 Beliefs That Will Affect Care: None marital status: Life Partner Current Living Situation: Significant Other Other Information That Helps Us Care for You: No Feels Safe at Home: Yes Safety Concerns: Feels Safe At This Time Assistive Devices: Glasses Physical Exam Physical Exam: GENERAL: Comfortable, pleasant, obese, slightly anxious, no respiratory distress SKIN: Normal color, warm HEENT: [place] palpebral conjunctivae, no ptosis, moist buccal mucosa NECK : Supple, short neck, no tenderness CHEST : CTA, no tenderness HEART : Bradycardic, no obvious murmurs ABDOMEN: Some distention, nontender EXTREMITIES : No LE swelling/tenderness, no other conspicuous deformities noted NEUROLOGIC : Coherent, no facial asymmetry, no other gross focality Results & Data Results & Data ([facility]) Vital Signs (Past 12 Hours) Vital Signs Temp Pulse Resp BP Pulse Ox 09/14/20 01:30 64 24 153/87 H 95 09/14/20 01:15 71 23 139/85 96 09/14/20 01:00 69 23 142/84 H 94 09/14/20 00:56 70 14 127/81 09/14/20 00:50 76 24 137/86 09/14/20 00:28 36.9 C 76 22 162/83 H 96 Laboratory Results Laboratory Results WBC 7.03 K/uL (4.8-10.8) 09/14/20 00:36 RBC 4.82 M/uL (4.7-6.1) 09/14/20 00:36 Hgb 14.9 g/dL (14.0-18.0) 09/14/20 00:36 Hct 43.8 % (42-52) 09/14/20 00:36 MCV 90.9 fL (80-100) 09/14/20 00:36 MCH 30.9 pg (25-34) 09/14/20 00:36 MCHC 34.0 g/dL (32-36) 09/14/20 00:36 RDW Std Deviation 44.2 fL (36.4-46.3) 09/14/20 00:36 RDW Coeff of Bahman 13.4 % (11.5-14.5) 09/14/20 00:36 Plt Count 210 K/uL (130-400) 09/14/20 00:36 MPV 11.1 fL (7.4-10.4) H 09/14/20 00:36 Immature Gran % (Auto) 0.1 % 09/14/20 00:36 Neut % (Auto) 52.4 % 09/14/20 00:36 Lymph % (Auto) 31.0 % 09/14/20 00:36 [place] % (Auto) 14.4 % 09/14/20 00:36 Eos % (Auto) 1.7 % 09/14/20 00:36 Baso % (Auto) 0.4 % 09/14/20 00:36 Neut # (Auto) 3.68 K/uL (1.4-6.5) 09/14/20 00:36 Lymph # (Auto) 2.18 K/uL (1.2-3.4) 09/14/20 00:36 [place] # (Auto) 1.01 K/uL (0.11-0.59) H 09/14/20 00:36 Eos # (Auto) 0.12 K/uL (0-0.5) 09/14/20 00:36 Baso # (Auto) 0.03 K/uL (0-0.2) 09/14/20 00:36 Immature Gran # (Auto) 0.01 K/uL (0.00-0.02) 09/14/20 00:36 PT 10.8 Seconds (9.0-12.0) 09/14/20 00:36 INR 1.0 (0.9-1.1) 09/14/20 00:36 APTT 29.0 Seconds (21.0-31.0) 09/14/20 00:36 PTT Ratio 1.0 09/14/20 00:36 Sodium 141 mmol/L (136-145) 09/14/20 00:36 Potassium 4.0 mmol/L (3.5-5.1) 09/14/20 00:36 Chloride 108 mmol/L (98-107) H 09/14/20 00:36 Carbon Dioxide 27 mmol/L (21-32) 09/14/20 00:36 Anion Gap 6.0 (3-11) 09/14/20 00:36 BUN 17 mg/dl (7-18) 09/14/20 00:36 Creatinine 0.87 mg/dl (0.6-1.4) 09/14/20 00:36 Est Cr Clr Drug Dosing 111.0 ml/min 09/14/20 00:36 Est GFR ( Amer) 102.8 09/14/20 00:36 Est GFR (Non-Af Amer) 88.7 09/14/20 00:36 BUN/Creatinine Ratio 19.2 (10-20) 09/14/20 00:36 Glucose 114 mg/dl (70-99) H 09/14/20 00:36 Calcium 8.4 mg/dl (8.5-10.1) L 09/14/20 00:36 Total Bilirubin 0.4 mg/dl (0.2-1) 09/14/20 00:36 AST 22 U/L (15-37) 09/14/20 00:36 ALT 27 U/L (12-78) 09/14/20 00:36 Alkaline Phosphatase 68 U/L (45-117) 09/14/20 00:36 Troponin I 0.844 ng/ml (0-0.045) H* 09/14/20 00:36 Total Protein 7.5 gm/dl (6.4-8.2) 09/14/20 00:36 Albumin 3.6 gm/dl (3.4-5.0) 09/14/20 00:36 Globulin 3.9 gm/dl (2.5-4.0) 09/14/20 00:36 Albumin/Globulin Ratio 0.9 (0.9-2) 09/14/20 00:36 Lipase 101 U/L (73-393) 09/14/20 00:36 SARS-CoV-2 Ag (Rapid) Negative (Negative) 09/14/20 Unknown Diagnostic Findings Chest x-ray as per my interpretation : Cardiomegaly, atelectasis EKG as per my interpretation : Rate 70, NSR, normal axis, ST depression anterolateral leads
[2020-09-14] MEDS: METOPROLOL SUCC 25MG EXT REL TAB PO SCH (04:17)
[2020-09-14] MEDS ORDERED: HEPARIN 25000 UNIT/500 ML D5W IV ONE (04:25)
[2020-09-14] MEDS ORDERED: GLUCOSE 40% GEL 15 GM TUBE PO PRN (04:38)
[2020-09-14] MEDS ORDERED: GLUCOSE 10 TABS/TUBE PO PRN (04:38)
[2020-09-14] MEDS ORDERED: CARBOHYDRATES FOR HYPOGLYCEMIA PO PRN (04:38)
[2020-09-14] MEDS ORDERED: LORazepam 0.5 MG/1 ML VIAL IV PRN (04:38)
[2020-09-14] MEDS ORDERED: PROMETHAZINE HCL 12.5 MG in SODIUM CHLORIDE 0.9% 50 ML IV PRN (04:38)
[2020-09-14] MEDS ORDERED: GLUCAGON FOR INJ 1 MG VIAL SQ PRN (04:38)
[2020-09-14] MEDS ORDERED: traMADol HCL 50 MG TABLET PO PRN (04:38)
[2020-09-14] MEDS ORDERED: ACETAMINOPHEN 325 MG TAB PO PRN (04:38)
[2020-09-14] MEDS ORDERED: MoRPHine SULFATE 4 MG/ML 1 ML CARP\\VIAL IV PRN (04:38)
[2020-09-14] MEDS ORDERED: DEXTROSE 50% 50 ML SYRINGE IV PRN (04:38)
[2020-09-14] MEDS ORDERED: Heparin IV Standard *NO* Bolus IV STA (04:38)
[2020-09-14] MEDS ORDERED: LACTATED RINGER'S 1,000 ML IV SCH (04:38)
[2020-09-14] MEDS: HEPARIN SODIUM/DEXTROSE 25,000 UNITS/500 ML BAG IV SCH ×2 (04:51→17:58)
[2020-09-14] MEDS: ASPIRIN 81 MG ECTAB PO SCH (08:00)
[2020-09-14] MEDS: ROSUVASTATIN CALCIUM 20 MG TAB PO SCH (08:00)
--- NOTE | 2020-09-14 14:55 | XRay Report ---
XR chest 1V portable CLINICAL HISTORY: Atypical chest pain COMPARISON STUDY: No previous studies for comparison. FINDINGS: The heart is enlarged. There is mild interstitial thickening. There is minor right basilar atelectasis. There is blunting of the right lateral costophrenic angle. There is no lobar consolidati on.[ IMPRESSION: 1. Cardiomegaly and mild interstitial thickening 2. Right basilar atelectasis 3. No evidence of lobar consolidation ACT 112: Negative or not required by law. Electronically signed by: Linus Yang M.D. 09/14/2020 7:45 AM
[2020-09-14] MEDS: INSULIN ASPART 100 UNITS/ML 3 ML PEN SC SCH (17:21)
[2020-09-14 18:10] LABS: Troponin I 1.14 ng/ml (0-0.045)
[2020-09-14] MEDS: ISOSORBIDE MONO EXTENDED REL 30 MG TABCR PO SCH (18:49)
[2020-09-14 19:09] LABS: Partial Thromboplastin Ratio 2.1
[2020-09-14 20:07] LABS: Partial Thromboplastin Time 58.7 Seconds (21.0-31.0)
[2020-09-15 06:52] LABS: Estimated Average Glucose 123 mg/dl; Hemoglobin A1C 5.9 % (4.5-5.6)
[2020-09-15 07:31] LABS: Partial Thromboplastin Ratio 2.5
[2020-09-15 07:39] LABS: Partial Thromboplastin Time 68.9 Seconds (21.0-31.0)
[2020-09-15] MEDS: HEPARIN SODIUM/DEXTROSE 25,000 UNITS/500 ML BAG IV SCH ×2 (08:01→23:20)
[2020-09-15] MEDS: ISOSORBIDE MONO EXTENDED REL 30 MG TABCR PO SCH (08:38)
[2020-09-15] MEDS: ROSUVASTATIN CALCIUM 20 MG TAB PO SCH (08:39)
[2020-09-15] MEDS: METOPROLOL SUCC 25MG EXT REL TAB PO SCH (08:39)
[2020-09-15] MEDS: ASPIRIN 81 MG ECTAB PO SCH (08:39)
[2020-09-15] MEDS: prednisoLONE acetate 1% OP SUSP 5 ML BTL OPL SCH ×2 (09:50→20:11)
--- NOTE | 2020-09-15 10:37 | Electrocardiogram Report ---
Test Reason : Blood Pressure : / mmHG Vent. Rate : 075 BPM Atrial Rate : 075 BPM P-R Int : 144 ms QRS Dur : 092 ms QT Int : 428 ms P-R-T Axes : 028 007 084 degrees QTc Int : 477 ms Normal sinus rhythm Nonspecific ST and T wave abnormality Prolonged QT Abnormal ECG When compared with ECG of 14-SEP-2020 00:35, (unconfirmed) T wave inversion no longer evident in Anterior leads Confirmed by Hemant Tom ([id number]) on 09/15/2020 10:37:23 AM Referred By: REFERRED SELF Confirmed By:Hemant Tom
--- NOTE | 2020-09-15 10:37 | Electrocardiogram Report ---
Test Reason : Blood Pressure : / mmHG Vent. Rate : 070 BPM Atrial Rate : 070 BPM P-R Int : 138 ms QRS Dur : 092 ms QT Int : 434 ms P-R-T Axes : 036 017 099 degrees QTc Int : 468 ms Normal sinus rhythm Nonspecific ST and T wave abnormality Abnormal ECG No previous ECGs available Confirmed by Hemant Tom ([id number]) on 09/15/2020 10:37:16 AM Referred By: REFERRED SELF Confirmed By:Hemant Tom
--- NOTE | 2020-09-15 11:44 | Electrocardiogram Report ---
Test Reason : Blood Pressure : / mmHG Vent. Rate : 082 BPM Atrial Rate : 082 BPM P-R Int : 158 ms QRS Dur : 090 ms QT Int : 410 ms P-R-T Axes : 050 044 114 degrees QTc Int : 479 ms Normal sinus rhythm Abnormal ECG When compared with ECG of 14-SEP-2020 00:53, (unconfirmed) Inverted T waves have replaced nonspecific T wave abnormality in Lateral leads Confirmed by Hemant Tom ([id number]) on 09/15/2020 11:44:21 AM Referred By: REFERRED SELF Confirmed By:Hemant Tom
--- NOTE | 2020-09-15 12:26 | Cardiology Progress Note ---
Date of Service September 15, 2020 Assessment & Plan (1) Unstable angina pectoris: (2) Abnormal EKG: (3) Elevated troponin I level: (4) Pseudoaneurysm of right femoral artery: (5) Coronary artery disease: Likely no further chest discomfort since admission. Continuous ischemic EKG changes. Troponin peaked at 1.4. No new wall motion abnormalities on echocardiogram. For cardiac cath in the a.m. N.p.o. after midnight. Continue current medications. Admission and Anticipated Discharge Date Admission Date: September 14, 2020 Subjective Patient seen and examined, chart reviewed. States he is feeling well at rest. Has only ambulated to the restroom but no recurrences of chest discomfort since admission. Denies shortness of breath, palpitations, lightheadedness, dizziness or syncope. His wound concern with a cardiac catheterization is the risk of recurrent pseudoaneurysm of his right femoral artery. Telemetry reviewed: Normal sinus rhythm without arrhythmia. Review of Systems Review of Systems: All systems reviewed & are unremarkable except as noted in HPI & below Physical Exam Physical Exam: General: Awake, alert and oriented x 3. No acute distress. HEENT: Normocephalic, atraumatic. Pupils equal, round and reactive to light and accommodation. Extraocular muscles are intact. Anicteric sclera. Moist mucous membranes. Neck: No JVD. No bruit. Cardiovascular: Regular. Positive S-4. Normal S-1 and S-2. No S-3. No murmurs or rubs. Pulmonary: Clear to auscultation B/L. No rales, rhonchi or wheezing Abdomen: Bowel sounds x 4, soft. No rebound, guarding or tenderness. No organomegaly. Extremities: No clubbing, cyanosis or edema. +2 pedal pulses bilaterally. Skin: Warm and dry. Results & Data ([facility]) Vital Signs (Past 12 Hours) Vital Signs Temp Pulse Pulse Resp BP Pulse Ox 09/15/20 12:12 36.8 C 85 158/88 H 95 09/15/20 10:39 36.6 C 87 14 123/66 97 09/15/20 08:51 37.0 C 82 157/89 H 95 09/15/20 07:00 77 09/15/20 04:08 37.2 C 86 18 142/64 H 95
[2020-09-15 15:20] LABS: Partial Thromboplastin Ratio 2.3
--- NOTE | 2020-09-15 19:35 | Hospitalist Progress Note ---
Date of Service September 15, 2020 Assessment & Plan (1) NSTEMI (non-ST elevated myocardial infarction): cont heparin drip and current medical management. 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 Patient remains chest pain free. Cardiac cath in am. (2) Pseudoaneurysm of right femoral artery: Required repeat hospitalization and follow-up with vascular surgery. This issue is resolved since his prior July 2020 heart catheterization (3) Coronary artery disease: Continue medical management as listed above. (4) Hypertension: Around goal, continue heart healthy diet. (5) DVT prophylaxis: SCDs Full Code Dispo-to home pending cath findings. [facility] and [facility]tic[facility]ated Discharge Date Admission Date: September 14, 2020 Subjective cc: NSTEMI feeling fine today denies chest pain overnight some EKG changes this morning reflecting some endocardial injury but no ST elevations. Trop peaked at 1.4. Review of Systems Review of Systems: All systems reviewed & are unremarkable except as noted in Subjective Physical Exam Physical Exam: CONSTITUTIONAL: WNWD, vitals as above, generally well- appearing EYES: normal conjunctivae, no scleral icterus ENT: external ear and nose normal, oropharynx clear, MMM RESPIRATORY: clear to auscultation bilaterally, no crackles, rales or wheezes, normal respiratory effort CARDIOVASCULAR: regular rate and rhythm, S1 and 2 heard without murmurs, gallops or rubs, no JVD, no peripheral edema GASTROINTESTINAL: soft, nontender, nondistended, no guarding MUSCULOSKELETAL: strength 5/5 throughout, head is normocephalic and atraumatic, neck supple SKIN: warm and dry NEUROLOGIC: No facial palsy, no dysarthria. CN 2-12 grossly intact, normal cognition, normal speech, no gross focal deficits. PSYCHIATRIC: alert cooperative and oriented to person, place and time. Results & Data Results & Data ([place]) Vital Signs (Past 12 Hours) Vital Signs Temp Pulse Pulse Resp BP BP Pulse Ox 09/15/20 15:23 37.1 C 67 18 128/55 L 94 09/15/20 14:54 74 09/15/20 12:12 36.8 C 85 158/88 H 95 09/15/20 10:39 36.6 C 87 14 123/66 97 09/15/20 08:51 37.0 C 82 157/89 H 95 Laboratory Results Cardiac Enzymes 09/14/20 Range/Units 19:40 Troponin I 1.400 H* (0-0.045) ng/ml Medications Administered Current Inpatient Medications Acetaminophen (Acetaminophen 325 Mg Tab) 650 mg PO Q4H PRN PRN Reason: Pain or Fever Stop: 10/14/20 04:37 Aspirin (Aspirin 81 Mg Ectab) 81 mg PO [facility] Stop: 10/14/20 08:59 Last Admin: 09/15/20 08:39 Dose: 81 mg Documented by: Lorazepam (Ativan) 0.5 mg in 1 mls @ 1 mls/min IV Q4H PRN PRN Reason: Anxiety/Agitation Stop: 10/14/20 04:37 Promethazine HCl 12.5 mg/ (Sodium Chloride) 50.5 mls @ 202 mls/hr IV Q6H PRN PRN Reason: Nausea And Vomiting Stop: 10/14/20 04:37 Heparin Sodium/Dextrose (Heparin Sodium/Dextrose) 25,000 units in 500 mls @ 33 mls/hr IV .[id number] [facility]; Protocol Stop: 10/14/20 04:37 Last Titration: 09/15/20 18:42 Dose: 1,650 units/hr, 33 mls/hr Documented by: Isosorbide Mononitrate (Isosorbide [place] Extended Rel 30 Mg Tabcr) 30 mg PO [facility] Stop: 10/14/20 09:59 Last Admin: 09/15/20 08:38 Dose: 30 mg Documented by: Metoprolol Succinate (Metoprolol Succ 25mg Ext Rel Tab) 25 mg PO [facility] Stop: 10/14/20 02:59 Last Admin: 09/15/20 08:39 Dose: 25 mg Documented by: Morphine Sulfate (Morphine Sulfate 4 Mg/Ml 1 Ml Carp\Vial) 4 mg IV Q4H PRN PRN Reason: Pain Stop: 09/28/20 04:37 Nitroglycerin (Nitroglycerin Sl 0.4 Mg/Tab Tab) 0.4 mg SL UD PRN PRN Reason: Chest Pain Stop: 10/14/20 04:37 Prednisolone Acetate (Prednisolone Acetate 1% Op Susp 5 Ml Btl) 1 drops OPL BID [facility] Stop: 10/15/20 09:44 Last Admin: 09/15/20 09:50 Dose: 1 drops Documented by: Rosuvastatin Calcium (Rosuvastatin Calcium 20 Mg Tab) [facility] Stop: 10/14/20 08:59 Last Admin: 09/15/20 08:39 Dose: 20 mg Documented by: Tramadol HCl (Tramadol Hcl 50 Mg Tablet) 25 - 50 mg PO Q4H PRN PRN Reason: Pain Stop: 10/14/20 04:37
[2020-09-16 06:10] LABS: Partial Thromboplastin Ratio 2.3
[2020-09-16 06:23] LABS: Partial Thromboplastin Time 63.5 Seconds (21.0-31.0)
[2020-09-16] MEDS ORDERED: HEPARIN (PORCINE) 1000 UNIT/ML 10 ML (CATH LAB USE ONLY) ONE ×2 (08:23→10:00)
[2020-09-16] MEDS ORDERED: MIDAZOLAM HCL 1 MG/ML 2ML VIAL ONE (08:23)
[2020-09-16] MEDS ORDERED: niCARdipine HCL INJ 2.5 MG/ML 10 ML AMP ONE (08:23)
[2020-09-16] MEDS ORDERED: fentaNYL citrate 100 MCG/2 ML VIAL ONE (08:23)
[2020-09-16] MEDS ORDERED: NITROGLYCERIN/D5W 100MCG/ML 20ML SYR ONE (08:24)
[2020-09-16] MEDS: ROSUVASTATIN CALCIUM 20 MG TAB PO SCH (08:30)
[2020-09-16] MEDS: METOPROLOL SUCC 25MG EXT REL TAB PO SCH (08:30)
[2020-09-16] MEDS: ISOSORBIDE MONO EXTENDED REL 30 MG TABCR PO SCH (08:30)
[2020-09-16] MEDS: ASPIRIN 81 MG ECTAB PO SCH (08:30)
[2020-09-16] MEDS ORDERED: SODIUM CHLORIDE 0.9% 1000ML 1,000 ML IV SCH (08:45)
--- NOTE | 2020-09-16 09:25 | Electrocardiogram Report ---
Test Reason : Blood Pressure : / mmHG Vent. Rate : 073 BPM Atrial Rate : 073 BPM P-R Int : 154 ms QRS Dur : 096 ms QT Int : 422 ms P-R-T Axes : 055 010 106 degrees QTc Int : 464 ms Sinus rhythm with Premature atrial complexes Prolonged QT Abnormal ECG When compared with ECG of 15-SEP-2020 08:07, Premature atrial complexes are now Present Confirmed by Hemant Tom ([id number]) on 09/16/2020 9:25:38 AM Referred By: REFERRED SELF Confirmed By:Hemant Tom
--- NOTE | 2020-09-16 09:43 | Cardiac Catheterization ---
Date of Service September 16, 2020 Cardiac Cath Report Cardiac Cath Report Procedure: 1. Coronary angiography History: This is a 70-year-old diabetic male who previously underwent a cardiac catheterization in June after an abnormal exercise stress echocardiogram. That study indicated moderate nonobstructive coronary artery disease that was felt to be treatable by medications. The patient has been doing well unfortunately, over the past several days he has been experiencing some increased chest pain and presented to the hospital where he had an elevation in his cardiac troponins. Echocardiogram indicates normal LV function. EKG showed nonspecific ST and T wave changes. The patient was referred for cardiac catheterization. Procedure summary: After informed consent was obtained patient was taken to the cardiac catheterization lab where access was obtained using a retrograde Salinger technique from the right radial artery. Preformed 5 Bengali diagnostic catheters were utilized for the coronary angiograms. Following the procedure the patient underwent coronary intervention on the LAD. [facility] data: Start time 8:58 AM End time 9:30 AM Opening aortic pressure 107/55 Closing aortic pressure 101/57 LV pressurevalve not crossed Sedation Versed 1 mg IV IV fluids 75 cc normal saline Contrast 100 cc Optiray Fluoroscopy time 7 minutes Radiation 1743 mGy DAP 167.04 cGy/m Right dominant system AUC score 9 Coronary angiography: Selective injections of the right coronary artery reveal mild diffuse disease except for the mid segment there is an eccentric 50% stenosis. The right coronary artery is dominant. Injections into the left coronary artery reveal the left main trunk to be patent. The left circumflex artery consist mainly of a large first marginal supplying the lateral myocardium. There is a medium sized ramus artery from the proximal circumflex. The left circumflex artery has minor diffuse disease but is widely patent. The LAD in its proximal segment appears to have an ulcerated plaque which in some views reaches up to 80 to 85% stenosis. The LAD then continues on with mild to moderate diffuse disease to the apex where it is subtotaled and functionally occluded. Summary: When comparing this cardiac catheterization to the previous completed in June the proximal LAD stenosis has progressed and now appears to be ulcerated. The remainder the cardiac catheterization is unchanged. Recommendations: The recommendations are for coronary intervention on the proximal LAD.
[2020-09-16] MEDS ORDERED: TICAGRELOR 90 MG TAB PO ONE (10:22)
--- NOTE | 2020-09-16 10:31 | Post Anesthesia Assessment ---
Date of Service September 16, 2020 Post Sedation Assessment Vital Signs Temp Pulse Pulse Pulse Resp BP BP 09/16/20 08:00 98.2 F 77 18 138/70 09/16/20 07:33 74 09/16/20 03:53 97.9 F 85 18 110/60 09/16/20 00:06 97.9 F 77 19 146/62 H 09/15/20 23:33 86 09/15/20 20:01 98.4 F 73 16 127/65 09/15/20 15:23 98.8 F 67 18 128/55 L 09/15/20 14:54 74 09/15/20 12:12 98.2 F 85 158/88 H 09/15/20 10:39 97.9 F 87 14 123/66 Pulse Ox 09/16/20 08:00 92 09/16/20 07:33 09/16/20 03:53 96 09/16/20 00:06 96 09/15/20 23:33 09/15/20 20:01 92 09/15/20 15:23 94 09/15/20 14:54 09/15/20 12:12 95 09/15/20 10:39 97 Recovery Score Activity: Moves 4 extremities Respiration: Deep Breath/Cough Circulation: +/-20% PreAnes Value Consciousness: Fully Awake Oxygen Saturation: O2 needed for >90% Discharge Sedation Level of Care: Fast Track Phase II Post Sedation Plan On clinical assessment, the patient appears to have tolerated the sedation without complications. Patient is recovering as anticipated. Patient will continue to be monitored by nursing and may be discharged when sedation discharge criteria are met per below protocol. Upon Completions of procedure up to 15 minutes continue every 5 minute vital signs and the P.A.R. score; then discharge to a Phase I or Fast Track to Phase II per the following guidelines: * Discharge Patient to appropriate Phase II area if PAR is 8 or greater or return to pre- procedure baseline. The post - procedure orders will be as directed. * If PAR score is less than 8 or not return to pre-procedure baseline then patient will follow Phase I monitoring till PAR is reached for Phase II. The Phase I may be done in procedure room or may call to secure a Phase I area. * If naloxone or flumazenil are used for reversal, hold in Phase I for continued monitoring from when last reversal dose was given for a minimum of 60 minutes or longer pending the nurse and/or physician discretion of patient condition before discharge to Phase II. Please call the Sedation Physician to re-evaluate and complete post-note for discharge to Phase II area. Do NOT discharge from procedure sedation or Phase 1 until post- sedation evaluation note is complete by procedure /sedation MD Sedation Discharge Instructions to be given to the patient at discharge to home.
--- NOTE | 2020-09-16 10:46 | Cardiac Catheterization ---
[facility] Data: Bladder Changer Cardiac Status Clinical evaluation leading to the procedure CAD Presenation: Non STEMI Anginal Classification: CCS IV Heart Failure: No Cardiogenic Shock within 24 Hours: No Cardiac Arrest within 24 Hours: No Imaging Studies Past 6 Months: Yes Stress Studies Past 6 Months: No Diagnostic Physicians Name: Eric Colbert MD Status: Elective Closure Device Percutaneous Entry Location: Radial Closure Device: Radial Band Recommendations: PCI without planned CABG PCI Indication: PCI for high risk Non-HALEY Lesion Segment Name: Proximal to mid LAD Culprit Artery: Yes Stenosis Prior to Rx (%): 90 IVUS: Yes FFR: No Pre-Procedure ALICE Flow: 3 Previously Treated Lesion: No Lesion Complexity: Non-High/Non-C Lesion Length (mm): 30 Thrombus Present: Yes Bifurcation Lesion: Yes Guidewire Across Lesion: Stenosis Post-Procedure (%): 0 Post-Procedure ALICE Flow: 3 Devices(s) Deployed: Yes Yes Intraprocedure Events Significant Disection: No Perforation: No Cardiac Cath Procedure Full Procedure Date September 16, 2020 Pre-Procedure Diagnosis Pre-Procedure Diagnosis: Non STEMI AUC Score AUC Score: 8 Post-Procedure Diagnosis Post-Procedure Diagnosis: Severe CAD and Successful PCI Procedure(s) Performed Procedure(s) Performed: Coronary Angiography, Drug Eluting Stent and IVUS Spine Specialist Eric Colbert MD Coremaker Machine(s) [place] Estimated Blood Loss Estimated Blood Loss: 15 Medication(s) Medication(s): Fentanyl, Heparin, Nicardipine, Nitroglycerin and Versed Medication(s): Ticagrelor Summary of Findings Indication: NSTEMI Access: 6Fr right radial artery Catheters: EBU 3.5 guide Findings: For full details of patient's coronary angiography please see cath report dictated by Dr. Mejias. Briefly, patient found to have severe proximal to mid LAD disease and intermediate mid RCA disease. Decision to proceed with PCI of LAD. -- PCI -- Antithrombotic therapy: Heparin, ticagrelor Procedure: Left main cannulated with EBU 3.5 guide BMW wire passed across lesion into distal LAD vessel [place] IVUS catheter placed into mid LAD to assess extent of disease in mid LAD, vessel sizing. IVUS pullback revealed severe mildly calcified mid disease. Had severe proximal LAD disease with thrombus extending to first diagonal. Minimal left main disease. [place] wire placed in the first diagonal Mid LAD stented with 3.5 x 18 mm Willis drug-eluting stent Second ALE (4.0 x 26 mm Willis) placed from proximal LAD across diagonal, overlapping with proximal aspect of initially placed stent. Repeat IVUS showed well apposed stents with no apparent edge complications Stents post-dilated with 4.0 noncompliant balloon IC vasodilators administered for spasm Post procedure ALICE 3 flow, stents well expanded with minimal residual stenosis and no apparent cardiac complications. ALICE-3 flow in first diagonal. Arterial Closure: TR band Summary: 1. Successful PCI of proximal to mid LAD with 2 overlapping drug-eluting stents (4.0 x 26, 3.5 x 18 mm Willis). Recommendations: To PCU for continued monitoring Loaded with ticagrelor 180 mg in Bladder Changer Continue dual-antiplatelet therapy for at least 1 year Continue statin, and ASCVD risk factor modification Consult cardiac Rehab Hemodynamics Rest Ao:: 133/77/98 Final Ao: 123/68/91 LV: -- Recommendations Recommendations: PCI without planned CABG Specimens Specimens: None Radiation Exposure (mGy) 3955 Contrast (mls) 200 Fluids (cc crystalloids) Fluids (cc crystalloids): 202 Drains Drains: None Anesthesia Moderate Procedural Complication(s) None Disposition PCU I attest to the content of the Intraoperative Record and any orders documented therein. Any exceptions are noted below. [facility] Card Cath Procedure Codes Therapeutic Services & Ancillary Proc Procedure 1: Cardiovascular Tx and Anc Procedures: 96744 IV Ultrasound (Coronary or Graft) Moderate Sedation Procedure 1: Sedation/Anesthesia: 18313 Mod Sedation by the same physician; Ea [id number] Minutes Stenting Procedure 1: Cardiovascular Stent Procedures: 59510 Perc transcatheter placement of intracoronary stent(s), with ang PG Care Time/CCT Total # of Minutes Spent Total Time Spent with Patient: Total time spent is greater than 50% in coordination of care (as documented) at patient's floor/unit and/or counseling patient:
[2020-09-16] MEDS: HEPARIN SODIUM/DEXTROSE 25,000 UNITS/500 ML BAG IV SCH ×2 (11:11→14:56)
[2020-09-16] MEDS: prednisoLONE acetate 1% OP SUSP 5 ML BTL OPL SCH ×2 (11:22→21:38)
--- NOTE | 2020-09-16 12:02 | Cardiology Progress Note ---
Date of Service September 16, 2020 Assessment & Plan (1) Unstable angina pectoris: (2) Abnormal EKG: (3) Elevated troponin I level: (4) Pseudoaneurysm of right femoral artery: (5) Coronary artery disease: Status post PCI to the LAD. Tolerated well. Monitor overnight per protocol Continue aspirin and metoprolol We will increase rosuvastatin to 40 mg daily Plavix added status post PCI Admission and Anticipated Discharge Date Admission Date: September 14, 2020 Subjective Patient seen and examined, chart reviewed. States he feels well status post cath. No significant pain at radial site. Telemetry reviewed: Normal sinus rhythm without arrhythmia. Review of Systems Review of Systems: All systems reviewed & are unremarkable except as noted in HPI & below Physical Exam Physical Exam: General: Awake, alert and oriented x 3. No acute distress. HEENT: Normocephalic, atraumatic. Pupils equal, round and reactive to light and accommodation. Extraocular muscles are intact. Anicteric sclera. Moist mucous membranes. Neck: No JVD. No bruit. Cardiovascular: Regular. Positive S-4. Normal S-1 and S-2. No S-3. No murmurs or rubs. Pulmonary: Clear to auscultation B/L. No rales, rhonchi or wheezing Abdomen: Bowel sounds x 4, soft. No rebound, guarding or tenderness. No organomegaly. Extremities: No clubbing, cyanosis or edema. +2 pedal pulses bilaterally. Skin: Warm and dry. Results & Data ([facility]) Vital Signs (Past 12 Hours) Vital Signs Temp Pulse Pulse Pulse Resp BP BP 09/16/20 11:34 65 18 147/82 H 09/16/20 11:19 76 18 159/84 H 09/16/20 11:00 80 16 156/91 H 09/16/20 10:54 71 09/16/20 10:45 69 17 153/84 H 09/16/20 10:30 77 17 150/86 H 09/16/20 08:00 36.8 C 77 18 138/70 09/16/20 07:33 74 09/16/20 03:53 36.6 C 85 18 110/60 09/16/20 00:06 36.6 C 77 19 146/62 H Pulse Ox 09/16/20 11:34 92 12/07/20 11:19 92 09/16/20 11:00 92 09/16/20 10:54 09/16/20 10:45 94 09/16/20 10:30 93 09/16/20 08:00 92 09/16/20 07:33 09/16/20 03:53 96 09/16/20 00:06 96
--- NOTE | 2020-09-16 15:45 | Hospitalist Progress Note ---
Date of Service September 16, 2020 Assessment & Plan (1) NSTEMI (non-ST elevated myocardial infarction): Cardiac cath this morning with 2 drug-eluting stents overlapping placed into the proximal LAD. Continue medical management with Toprol-XL 25 mg p.o. every morning, aspirin 81 mg p.o. every morning Crestor 20 mg p.o. every morning and ticagrelor 90 mg p.o. twice daily. He was loaded with ticagrelor in the Samples And Repairs Preparer this morning. He will remain overnight for close monitoring of his cath site with history of pseudoaneurysm of the right femoral artery. Currently appears stable and is tolerating lunch well.September 14, 2020 (2) Pseudoaneurysm of right femoral artery: Required repeat hospitalization and follow-up with vascular surgery. This issue is resolved since his prior July 2020 heart catheterization (3) Coronary artery disease: Continue medical management as listed above. (4) Hypertension: Around goal, continue heart healthy diet. (5) DVT prophylaxis: Lovenox Full Code Dispo-to home in am Destinee Ivory DO [facility] Hospitalist Subjective cc: NSTEMI no chest pain Right radial access with TR band in place, currently asymptomatic Tolerating p.o. Doing well post cath with 1 drug-eluting stent to LAD. Review of Systems Review of Systems: All systems reviewed & are unremarkable except as noted in Subjective Physical Exam Physical Exam: CONSTITUTIONAL: WNWD, vitals as above, generally well- appearing EYES: normal conjunctivae, no scleral icterus ENT: external ear and nose normal, oropharynx clear, MMM RESPIRATORY: clear to auscultation bilaterally, no crackles, rales or wheezes, normal respiratory effort CARDIOVASCULAR: regular rate and rhythm, S1 and 2 heard without murmurs, gallops or rubs, no JVD, no peripheral edema GASTROINTESTINAL: soft, nontender, nondistended, no guarding MUSCULOSKELETAL: strength 5/5 throughout, head is normocephalic and atraumatic, neck supple SKIN: warm and dry, TR band to right arm. NEUROLOGIC: No facial palsy, no dysarthria. CN 2-12 grossly intact, normal cognition, normal speech, no gross focal deficits. PSYCHIATRIC: alert cooperative and oriented to person, place and time. Results & Data Results & Data ([facility]) Vital Signs (Past 12 Hours) Vital Signs Temp Pulse Pulse Pulse Resp BP BP 09/16/20 13:14 69 16 152/76 H 09/16/20 12:55 80 18 09/16/20 12:28 68 18 163/77 H 09/16/20 11:34 65 18 147/82 H 09/16/20 11:19 76 18 159/84 H 09/16/20 11:00 80 16 156/91 H 09/16/20 10:54 71 09/16/20 10:45 69 17 153/84 H 09/16/20 10:30 77 17 150/86 H 09/16/20 08:00 36.8 C 77 18 138/70 09/16/20 07:33 74 09/16/20 03:53 36.6 C 85 18 110/60 Pulse Ox 09/16/20 13:14 94 09/16/20 12:55 95 09/16/20 12:28 95 09/16/20 11:34 92 09/16/20 11:19 92 09/16/20 11:00 92 09/16/20 10:54 09/16/20 10:45 94 09/16/20 10:30 93 09/16/20 08:00 92 09/16/20 07:33 09/16/20 03:53 96 Medications Administered Current Inpatient Medications Acetaminophen (Acetaminophen 325 Mg Tab) 650 mg PO Q4H PRN PRN Reason: Pain or Fever Stop: 10/14/20 04:37 Aspirin (Aspirin 81 Mg Ectab) 81 mg PO [facility] Stop: 10/14/20 08:59 Last Admin: 09/16/20 08:30 Dose: 81 mg Documented by: Lorazepam (Ativan) 0.5 mg in 1 mls @ 1 mls/min IV Q4H PRN PRN Reason: Anxiety/Agitation Stop: 10/14/20 04:37 Promethazine HCl 12.5 mg/ (Sodium Chloride) 50.5 mls @ 202 mls/hr IV Q6H PRN PRN Reason: Nausea And Vomiting Stop: 10/14/20 04:37 Sodium Chloride (Nss 1000ml) 1,000 mls @ 100 mls/hr IV .Q10H [facility] Stop: 09/16/20 15:57 Last Admin: 09/16/20 11:09 Dose: 100 mls/hr Documented by: Isosorbide Mononitrate (Isosorbide Fisher Extended Rel 30 Mg Tabcr) 30 mg PO [facility] Stop: 10/14/20 09:59 Last Admin: 09/16/20 08:30 Dose: 30 mg Documented by: Metoprolol Succinate (Metoprolol Succ 25mg Ext Rel Tab) [facility] [place]: 10/14/20 02:59 Last Admin: 09/16/20 08:30 Dose: 25 mg Documented by: Morphine Sulfate (Morphine Sulfate 4 Mg/Ml 1 Ml Carp\Vial) 4 mg IV Q4H PRN PRN Reason: Pain Stop: 09/28/20 04:37 Nitroglycerin (Nitroglycerin Sl 0.4 Mg/Tab Tab) 0.4 mg SL UD PRN PRN Reason: Chest Pain Stop: 10/14/20 04:37 Prednisolone Acetate (Prednisolone Acetate 1% Op Susp 5 Ml Btl) 1 drops OPL BID [facility] Stop: 10/15/20 09:44 Last Admin: 09/16/20 11:22 Dose: 1 drops Documented by: Rosuvastatin Calcium (Rosuvastatin Calcium 20 Mg Tab) 20 mg PO [facility] Stop: 10/14/20 08:59 Last Admin: 09/16/20 08:30 Dose: 20 mg Documented by: Ticagrelor (Ticagrelor 90 Mg Tab) 90 mg PO BID [facility] Stop: 10/16/20 22:29 Tramadol HCl (Tramadol Hcl 50 Mg Tablet) 25 - 50 mg PO Q4H PRN PRN Reason: Pain Stop: 10/14/20 04:37
[2020-09-16] MEDS ORDERED: ENOXAPARIN INJ 40 MG/0.4 ML SYR SQ SCH (21:00)
[2020-09-16] MEDS: TICAGRELOR 90 MG TAB PO SCH (21:37)
[2020-09-17 06:42] LABS: Est GFR (African American) 102.8; Est GFR (Non-African American) 88.7
[2020-09-17] MEDS: prednisoLONE acetate 1% OP SUSP 5 ML BTL OPL SCH (08:44)
[2020-09-17] MEDS ORDERED: ROSUVASTATIN CALCIUM 20 MG TAB PO SCH (09:00)
[2020-09-17] MEDS: TICAGRELOR 90 MG TAB PO SCH (09:37)
[2020-09-17] MEDS: ISOSORBIDE MONO EXTENDED REL 30 MG TABCR PO SCH (09:38)
[2020-09-17] MEDS: METOPROLOL SUCC 25MG EXT REL TAB PO SCH (09:38)
[2020-09-17] MEDS: ASPIRIN 81 MG ECTAB PO SCH (09:38)
--- NOTE | 2020-09-17 11:20 | Discharge Summary ---
Date of Service September 17, 2020 Admission HPI Per Admitting Provider History obtained from patient, family, and records. Medical history significant for nonocclusive CAD, PSVT, hypertension, hyperlipidemia, COPD as per records, DM 2 diet-controlled. Patient underwent diagnostic cardiac catheterization last June 2020 after an abnormal outpatient stress test. Nonobstructive CAD noted. Last confinement July 2020 right common femoral artery pseudoaneurysm as a complication of diagnostic cardiac cath procedure. Pseudoaneurysm resolved without operative management. 4 days history of achy left-sided chest heaviness as if somebody was stepping on his chest, intermittent symptoms, worsened with exertion, relieved by rest. Usual activities at home. Patient compliant with home medications. Some stress with mother's illness. No unusual cough or shortness of breath symptoms. Discomfort relieved by nitroglycerin administration at the ER. 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 Admission Exam Per Admitting Provider GENERAL: Comfortable, pleasant, obese, slightly anxious, no respiratory distress SKIN: Normal color, warm HEENT: [place] palpebral conjunctivae, no ptosis, moist buccal mucosa NECK : Supple, short neck, no tenderness CHEST : CTA, no tenderness HEART : Bradycardic, no obvious murmurs ABDOMEN: Some distention, nontender EXTREMITIES : No LE swelling/tenderness, no other conspicuous deformities noted NEUROLOGIC : Coherent, no facial asymmetry, no other gross focality Principal Diagnosis NSTEMI CAD s/p PCI to LAD Abnormal EKG Pseudoaneurysm of right femoral artery Discharge Exam CONSTITUTIONAL: WNWD, vitals as above, generally well-appearing EYES: normal conjunctivae, no scleral icterus ENT: external ear and nose normal, oropharynx clear, MMM RESPIRATORY: clear to auscultation bilaterally, no crackles, rales or wheezes, normal respiratory effort CARDIOVASCULAR: regular rate and rhythm, S1 and 2 heard without murmurs, gallops or rubs, no JVD, no peripheral edema GASTROINTESTINAL: soft, nontender, nondistended, no guarding MUSCULOSKELETAL: strength 5/5 throughout, head is normocephalic and atraumatic, neck supple SKIN: warm and dry, right wrist site is well healed. NEUROLOGIC: No facial palsy, no dysarthria. CN 2-12 grossly intact, normal cognition, normal speech, no gross focal deficits. PSYCHIATRIC: alert cooperative and oriented to person, place and time. Discharge Data Allergies Allergy/AdvReac Type Severity Reaction Status Date / Time Sulfa (Sulfonamide Allergy Swelling Verified 09/14/20 00:55 Antibiotics) of Lip/Tongue/Throat naproxen [From Naprosyn] AdvReac Intermediate Gastrointestinal Verified 09/14/20 00:55 Upset Consultations 09/14/20 01:25 ED Decision to Admit Stat 09/14/20 04:38 Consult Cardiology Routine 09/15/20 12:26 Consult Cardiac Catheterization Routine 09/16/20 10:49 Consult Cardiac Rehabilitation Routine Procedures Performed Operation Date: 09/16/20 09:00 Actual Procedures s Cineradiography w/Routine Exam - Albino Colbert MD p Cath, Left with Cors and Vent - Kirill Mejias DO s Drug Eluting Stent SGl Vessel - Albino Colbert MD s IVUS Coronary Single Vessel - Albino Colbert MD Ordered Studies [facility], [id number] XRay Report Patient: LUI GARCIA Date: 09/14/20MR#: [id number]: [id number] RDAcct ID:[id number]: [facility] Zip: [place], [place] [address]Grb: 70Location: 2SSex: MRoom/Bed: [id number] Phy: Destinee Ivory, DODiagnosis: ACSPri Phy: Latonya Young, DOService Date: 09/14/20Fam Phy: Latonya Young, DOInterpreting Phy: Linus Yang MDAdmit Phy: Tj Leiva MD Ordering Phy: Hemant Bhandari DO cc: ~ XR chest 1V portable CLINICAL HISTORY: Atypical chest pain COMPARISON STUDY: No previous studies for comparison. FINDINGS: The heart is enlarged. There is mild interstitial thickening. There is minor right basilar atelectasis. There is blunting of the right lateral costophrenic angle. There is no lobar consolidation.[ IMPRESSION: 1. Cardiomegaly and mild interstitial thickening 2. Right basilar atelectasis 3. No evidence of lobar consolidation ACT 112: Negative or not required by law. Electronically signed by: Linus Yang M.D. 09/14/2020 7:45 AM Dictated: 09/14/2044Transcribed: 09/14/20743 Hospital Course (1) NSTEMI (non-ST elevated myocardial infarction): (2) Coronary artery disease: (3) Pseudoaneurysm of right femoral artery: The patient is a 70-year-old man with a history of CAD who presented with accelerated angina. He had an elevated troponin that peaked at 1.4. Recent cardiac catheterization in July 2020 revealed nonocclusive CAD and he has been compliant with medical management since that time. He is classified as a diabetic but has been well controlled with an A1c less than 6. An echocardiogram was performed revealing moderate concentric LVH normal left ventricular systolic function with an ejection fraction 55 to 60% and no left ventricular wall motion abnormalities noted. Grade 2 diastolic dysfunction was present with no significant valvular pathology. Moderate left atrial enlargement was noted. A cardiac catheterization was performed on 09/16 revealing ulcerated plaque in the proximal LAD and 2 overlapping drug-eluting stents were placed in this area. He was loaded on ticagrelor and was monitored for an additional 24 hours on telemetry. Monitoring period was uneventful, and also was important in light of recent cardiac catheterization and pseudoaneurysm formation in his femoral artery. At time of discharge she was hemodynamically stable and afebrile and tolerating p.o. He was mentating and ambulating at baseline and oxygenating well on room air. He was discharged in stable condition with close primary care follow-up recommended. Total Time Total Time Spent Total Time Spent (In Minutes): 30 Total Time Includes: Examination of the Patient, Discharge Planning, Medication Reconciliation and Communication With Other Providers Discharge Plan Discharge Items Patient Disposition: Home - Self-Care Reason For Visit: ACS Discharge Diagnosis: NSTEMI CAD s/p PCI to LAD Abnormal EKG Pseudoaneurysm of right femoral artery Condition on Discharge: Good Activity: Resume your previous activity Non-emergency contact: Primary Care Provider Call non-emergency contact if: you have any medication questions, your symptoms worsen, your pain is not controlled, you have a fever, your wound has increased redness, your wound has increased drainage and your wound pain has increased Follow-up/Referrals: Latonya Young DO [Primary Care Provider] - (Date & Time 09/23/2020 10:40 AM Provider Latonya Young DO Department [facility] [place] ) Diet: Heart Healthy [place] Attending Provider Instructions: Please take all medications as instructed on discharge list below. Please follow up with Cardiology as instructed. Likely someone from their office should be contacting you for a follow-up appointment. It is recommended that you follow-up with your primary care provider within one week of this hospital stay to ensure you are still doing well after discharge form the hospital. This will also be important to review your new medications, ensure you are tolerating them, and set you up on the mail-order pharmacy system with new prescriptions. It was a pleasure taking care of you! Please call if you have any questions or problems. You can reach a [facility] hospitalist on duty at [facility] 24 hours a day by calling [phone]. Take care of yourself. Destinee Ivory DO [facility] Hospitalist [facility] Chief Medical Director Provider Instructions: ACTIVITY RECOMMENDATIONS: Excess manipulation of the wrist should be avoided for the next 24-48 hours. * No lifting over 2 pounds (approximately a 1/2 gallon of milk) with the utilized arm for 24 hours. * No strenuous activity such as bowling or tennis for 3 days. * Keep the site of the procedure covered with a bandage for 24 hours. *You may shower the day after the procedure. Do not take a tub bath or submerge the puncture site in water for the next 3 days. *Do not operate any motorized equipment for 3 days. SPECIAL CARE INSTRUCTIONS: The site may be slightly bruised and sore following your procedure. Should any of the following occur, contact the Dr. who performed your procedure. 1. Redness/inflammation, swelling, chills, or fever, or colored drainage at procedure site within 3-7 days after your procedure. 2. Coldness, discoloration, ongoing numbness, severe pain, or swelling. Expect mild tingling of hand and tenderness at the puncture site for up to three days. If this persists beyond three days, or other symptoms develop, notify the Dr. who performed your procedure. BLEEDING: If the procedure site on your wrist begins to bleed, do not panic 1. Place 1 or 2 fingers firmly just slightly above the insertion site to stop the bleeding. You may be able to feel your pulse as you hold pressure. 2. Lift your finger after 5 minutes to see if the bleeding has stopped. 3. Once the bleeding has stopped, gently wipe the wrist area clean with a bandage. * If the bleeding from your wrist does not stop after 10 minutes, or if there is a large amount of bleeding or spurting, call 911 (do not drive yourself to the hospital). SKIN IRRITATION: * You may experience some redness and/or swelling in the area where radiation was administered. If any skin irritation occurs, please contact your family physician. FOLLOW UP VISIT: Keep any scheduled doctor appointments. Pending Studies at Discharge: No Stand-Alone Forms: My [facility] Medications and DC Order Prescriptions: New Brilinta 90 mg Tablet 90 mg PO BID Qty: 60 RF: 0 rosuvastatin [Crestor] 20 mg Tablet 40 mg PO QAM Qty: 30 RF: 0 nitroglycerin [Nitrostat] 0.4 mg Tablet, Sublingual 0.4 mg sublingual UD PRN (Reason: chest pain) Qty: 30 RF: 0 Continued metoprolol succinate 25 mg tablet extended release 24 hr 25 mg PO QAM RF: 0 aspirin 81 mg Tablet,Delayed Release (Dr/Ec) 81 mg PO QAM RF: 0 coenzyme Q10 [CoQ-10] 100 mg Capsule 100 mg PO QAM RF: 0 omega-3 fatty acids-fish oil 300-1,000 mg Capsule 1 cap PO QAM RF: 0 Discontinued rosuvastatin 20 mg Tablet 20 mg PO QAM RF: 0 Discharge Orders: Discharge Order (Routine); Ordered 09/17/20 Ordered By: Destinee Moran/Other Patient Handouts: Having Cardiac Catheterization, Cardiac Catheterization Dc, Ticagrelor oral tablet, Rosuvastatin Tablets, Nitroglycerin sublingual tablets Admission Data Admit Date/Time: 09/14/20 02:57 Attending Provider: Destinee Ivory Admit Provider: Tj Leiva Primary Care Provider: Latonya Young Other Providers: Tj Leiva ; Roge Reddy ; Luca Thomas ; Haroon House ; Carlos Davis ; Kirill Mejias. ; Maninder Salvador ; Chrissy Keller ; Racheal Marin ; Rom Ratliff ; Albino Colbert.
--- NOTE | 2020-09-17 12:42 | Cardiology Progress Note ---
Date of Service September 17, 2020 Assessment & Plan (1) Unstable angina pectoris: (2) Abnormal EKG: (3) Elevated troponin I level: (4) Pseudoaneurysm of right femoral artery: (5) Coronary artery disease: Status post PCI to the LAD. Tolerated well. Continue aspirin, Brilinta and metoprolol We will increase rosuvastatin to 40 mg daily Okay to DC to home from a cardiac standpoint. We will follow up with us in 1 to 2 weeks, my office will call to arrange. Admission and Anticipated Discharge Date Admission Date: September 14, 2020 Subjective Patient seen and examined, chart reviewed. No complaints overnight. No discomfort at radial site. Denies chest pain, shortness of breath, palpitations, lightheadedness, dizziness or syncope. Telemetry reviewed: Normal sinus rhythm without arrhythmia or significant ectopy. Review of Systems Review of Systems: All systems reviewed & are unremarkable except as noted in HPI & below Physical Exam Physical Exam: General: Awake, alert and oriented x 3. No acute distress. HEENT: Normocephalic, atraumatic. Pupils equal, round and reactive to light and accommodation. Extraocular muscles are intact. Anicteric sclera. Moist mucous membranes. Neck: No JVD. No bruit. Cardiovascular: Regular. Positive S-4. Normal S-1 and S-2. No S-3. No murmurs or rubs. Pulmonary: Clear to auscultation B/L. No rales, rhonchi or wheezing Abdomen: Bowel sounds x 4, soft. No rebound, guarding or tenderness. No organomegaly. Extremities: No clubbing, cyanosis or edema. +2 pedal pulses bilaterally. Skin: Warm and dry. Results & Data ([facility]) Vital Signs (Past 12 Hours) Vital Signs Temp Pulse Pulse Resp BP Pulse Ox 09/17/20 11:34 36.9 C 76 18 131/81 94 09/17/20 08:00 62 09/17/20 07:15 36.8 C 86 18 151/84 H 95 09/17/20 04:04 36.5 C 74 20 136/62 96 09/17/20 00:41 74
== END 2020-09-17 13:39 | disposition home or self-care (01) | DRG 247 ==
LOC: ED 00:24 → 2S 02:57